=== PATIENT | male | born 1945 | race Caucasian/White ===

== ENCOUNTER 2017-02-20 16:33 | Emergency (ER) | payer MEDICARE, BC ==
[2017-02-20] MEDS ORDERED: Famotidine 20 MG Tab PO ONE (17:15)
[2017-02-20] MEDS ORDERED: Ondansetron 4 MG Tab.DIS PO ONE (17:15)
--- NOTE | 2017-02-20 17:22 | EDM.PDOC ---
ED HPI GENERAL MEDICAL PROBLEM - General Chief Complaint: Abdominal Pain Stated Complaint: DIZZY/NAUSEA/ABD PAIN Time Seen by Provider: 02/20/17 16:57 Source of Information: Reports: Patient History Limitations: Reports: No Limitations - History of Present Illness INITIAL COMMENTS - FREE TEXT/NARRATIVE: The patient presents with epigastric pain, nausea and vomiting. He says that it all started earlier today after he ate a half of a chicken sandwich. He denies fever, chills, cough, congestion, runny nose, chest pain, shortness of breath and diarrhea. He went to visit the grave of his and parents today and it was very hard for him. He is unsure if that may have triggered an anxiety attack. He still has his gallbladder and appendix. Onset: Gradual Duration: Hour(s): Location: Reports: Abdomen Quality: Reports: Ache Severity: Mild Improves with: Reports: None Worsens with: Reports: None Context: Reports: Other (after visiting his 's grave) Associated Symptoms: Reports: Nausea/Vomiting. Denies: Chest Pain, Cough, Fever /Chills, Shortness of Breath Middle Abdomen Pain Score (Numeric/FACES): 4 - Related Data Allergies Allergy/AdvReac Type Severity Reaction Status Date / Time Antihistamines - Alkylamine Allergy Tachycardia Verified 02/20/17 17:05 celecoxib [From Celebrex] Allergy Nausea Verified 02/20/17 17:05 ciprofloxacin [From Cipro] Allergy Nausea Verified 02/20/17 17:05 ciprofloxacin HCl Allergy Nausea Verified 02/20/17 17:05 [From Cipro] finasteride [From Proscar] Allergy Anxiety Verified 02/20/17 17:05 ibuprofen Allergy Nausea Verified 02/20/17 17:05 levofloxacin [From Levaquin] Allergy Nausea Verified 02/20/17 17:05 metronidazole [From Flagyl] Allergy Hives Verified 02/20/17 17:05 Metronidazole HCl Allergy Hives Verified 02/20/17 17:05 [From Flagyl] naproxen sodium [From Aleve] Allergy Nausea Verified 02/20/17 17:05 Sulfa (Sulfonamide Allergy Hives Verified 02/20/17 17:05 Antibiotics) sulfamethoxazole Allergy Nausea Verified 02/20/17 17:05 [From Bactrim] trimethoprim [From Bactrim] Allergy Nausea Verified 02/20/17 17:05 decongestants Allergy Tachycardia Uncoded 02/20/17 17:05 non-steroidal Allergy Nausea Uncoded 02/20/17 17:05 anti-inflammatories Home Meds: Home Meds Aspirin [Adult Low Dose Aspirin EC] 81 mg PO DAILY 01/08/14 [History] Metoprolol Succinate [Toprol XL] 25 mg PO DAILY 01/08/14 [History] Albuterol [Ventolin HFA] 2 puff INH Q4H PRN #1 puff 08/15/14 [Rx] Social & Family History - Family History Family Medical History: Noncontributory - Tobacco Use Smoking Status *Q: Current Every Day Smoker Years of Tobacco use: 15 Packs/Tins Daily: 0.5 Second Hand Smoke Exposure: No - Caffeine Use Caffeine Use: Reports: Coffee - Alcohol Use Days Per Week of Alcohol Use: 0 Number of Drinks Per Day: 2 Total Drinks Per Week: 0 - Recreational Drug Use Recreational Drug Use: No ED ROS GENERAL - Review of Systems Review Of Systems: See Below Constitutional: Reports: No Symptoms HEENT: Reports: No Symptoms Respiratory: Reports: No Symptoms Cardiovascular: Reports: No Symptoms Endocrine: Reports: No Symptoms GI/Abdominal: Reports: Abdominal Pain, Nausea, Vomiting. Denies: Diarrhea : Reports: No Symptoms Musculoskeletal: Reports: No Symptoms Skin: Reports: No Symptoms Neurological: Reports: No Symptoms ED EXAM, GI/ABD - Physical Exam Exam: See Below Exam Limited By: No Limitations General Appearance: Alert, No Apparent Distress Ears: Normal External Exam Nose: Normal Inspection Head: Atraumatic, Normocephalic Neck: Normal Inspection Respiratory/Chest: No Respiratory Distress, Lungs Clear, Normal Breath Sounds Cardiovascular: Regular Rate, Rhythm, No Edema, No Murmur GI/Abdominal: Soft, No Organomegaly, No Mass, Tenderness (Very mild upon palpation) Course - Vital Signs Last Recorded V/S: Last Vital Signs Temp 97.0 F 02/20/17 17:07 Pulse 78 02/20/17 17:41 Resp 18 02/20/17 17:41 BP 151/94 H 02/20/17 17:41 Pulse Ox 97 02/20/17 17:41 - Orders/Labs/Meds Orders: Active Orders 24 hr Category Date Time Status Cardiac Monitoring [RC] . DIRECTED Care 02/20/17 17:13 Active EKG Documentation Completion [RC] STAT Care 02/20/17 17:14 Active Chest 1V Frontal [CR] Stat Exams 02/20/17 17:15 Taken Labs: Laboratory Tests 02/20/17 02/20/17 02/20/17 Range/Units 17:25 17:25 18:20 WBC 11.97 H (4.23-9.07) K/mm3 RBC 5.34 (4.63-6.08) M/mm3 Hgb 16.2 (13.7-17.5) gm/L Hct 47.9 (40.1-51.0) % MCV 89.7 (79.0-92.2) fl MCH 30.3 (25.7-32.2) pg MCHC 33.8 (32.2-35.5) g/dl RDW Std Deviation 46.1 H (35.1-43.9) fL Plt Count 275 (163-337) K/mm3 MPV 9.0 L (9.4-12.3) fl Neut % (Auto) 63.0 (34.0-67.9) % Lymph % (Auto) 23.7 (21.8-53.1) % [place]ton % (Auto) 9.1 (5.3-12.2) % Eos % (Auto) 3.1 (0.8-7.0) Baso % (Auto) 0.8 (0.1-1.2) % Neut # (Auto) 7.55 H (1.78-5.38) K/mm3 Lymph # (Auto) 2.84 (1.32-3.57) K/mm3 Overton # (Auto) 1.09 H (0.30-0.82) K/mm3 Eos # (Auto) 0.37 (0.04-0.54) K/mm3 Baso # (Auto) 0.09 H (0.01-0.08) K/mm3 Sodium 137 (136-145) mEq/L Potassium 3.9 (3.5-5.1) mEq/L Chloride 102 (98-107) mEq/L Carbon Dioxide 23 (21-32) mEq/L Anion Gap 15.9 H (5-15) BUN 13 (7-18) mg/dL Creatinine 0.8 (0.7-1.3) mg/dL Est Cr Clr Drug Dosing 87.45 mL/min Estimated GFR (MDRD) > 60 (>60) mL/min BUN/Creatinine Ratio 16.3 (14-18) Glucose 101 (83-115) mg/dL Calcium 8.5 (8.5-10.1) mg/dL Total Bilirubin 0.7 (0.2-1.0) mg/dL AST 43 H (15-37) U/L ALT 30 (16-63) U/L Alkaline Phosphatase 86 (46-116) U/L Troponin I < 0.017 (0.00-0.056) ng/mL Total Protein 7.2 (6.4-8.2) g/dl Albumin 3.9 (3.4-5.0) g/dl Globulin 3.3 gm/dL Albumin/Globulin Ratio 1.2 (1-2) Lipase 150 (73-393) U/L Urine Color Yellow (Yellow) Urine Appearance Clear (Clear) Urine pH 6.0 (5.0-8.0) Ur Specific [place] 1.020 (1.005-1.030) Urine Protein 1+ H (Negative) Urine Glucose (UA) Negative (Negative) Urine Ketones Negative (Negative) Urine Occult Blood 1+ H (Negative) Urine Nitrite Negative (Negative) Urine Bilirubin Negative (Negative) Urine Urobilinogen 0.2 (0.2-1.0) Ur Leukocyte Esterase Negative (Negative) Urine RBC 0-5 (0-5) /hpf Urine WBC 0-5 (0-5) /hpf Ur Epithelial Cells Not seen (0-5) /hpf Urine Bacteria Few (FEW) /hpf Urine Mucus Not seen (FEW) /hpf Meds: Medications Discontinued Medications Generic Name Dose Route Start Last Admin Trade Name Freq PRN Reason Stop Dose Admin Famotidine 20 mg 02/20/17 17:15 02/20/17 17:39 Pepcid PO 02/20/17 17:16 20 mg ONETIME ONE Administration Ondansetron HCl 4 mg 02/20/17 17:15 02/20/17 17:39 Zofran Odt PO 02/20/17 17:16 4 mg ONETIME ONE Administration - Re-Assessments/Exams Free Text/Narrative Re-Assessment/Exam: 02/20/17 17:22 I ordered labs, EKG, CXR, UA, pepcid and zofran. 02/20/17 18:20 His WBC is elevated at 11.97. His anion gap was elevated slightly at 15.9. His AST was elevated at 43. His troponin was negative. His lipase was negative. I am waiting for a urine sample. 02/20/17 18:45 His UA shows no UTI. I will discharge him home. Departure - Departure Time of Disposition: 18:45 Disposition: Home, Self-Care 01 Condition: good Clinical Impression: Nausea Abdominal pain Qualifiers: Abdominal location: epigastric Qualified Code(s): R10.13 - Epigastric pain - Discharge Information Referrals: Romel Kunz MD [Primary Care Provider] - 1 Week Forms: ED Department Discharge Additional Instructions: Take pepcid 20mg daily for 5 days. Follow up with Dr Kunz in 1 week. Please return if you are worse. - My Orders Last 24 Hours: My Active Orders 02/20/17 17:13 Cardiac Monitoring [RC] . DIRECTED 02/20/17 17:14 EKG Documentation Completion [RC] STAT 02/20/17 17:15 Chest 1V Frontal [CR] Stat - Assessment/Plan Last 24 Hours: My Active Orders 02/20/17 17:13 Cardiac Monitoring [RC] . DIRECTED 02/20/17 17:14 EKG Documentation Completion [RC] STAT 02/20/17 17:15 Chest 1V Frontal [CR] Stat
[2017-02-20 18:57] VITALS: BP 147/79
--- NOTE | 2017-02-21 07:06 | CR ---
Chest: Frontal view of the chest was obtained utilizing portable technique. Comparison: Previous chest x-ray of 08/15/14. Heart size appears within normal limits for portable technique and slightly less prominent than on prior exam. Lungs are clear. Bony structures are grossly intact. Impression: 1. Nothing acute is appreciated on portable chest x-ray. Diagnostic code #1
== END 2017-02-20 18:55 | disposition home or self-care (01) ==
LOC: JD.ED 16:33
DX: R11.0 Nausea (principal); R10.13 Epigastric pain; F17.210 Nicotine dependence, cigarettes, uncomplicated; Z79.82 Long term (current) use of aspirin; Z79.899 Other long term (current) drug therapy; Z88.1 Allergy status to other antibiotic agents; Z88.6 Allergy status to analgesic agent; Z88.2 Allergy status to sulfonamides; Z88.8 Allergy status to other drugs, medicaments and biological substances
CPT/HCPCS: 36415; 71010; 80053; 81001; 83690; 84484; 85025; 93005; 99284; A9270

== ENCOUNTER 2017-05-30 10:19 | Emergency (ER) | payer MEDICARE, BC ==
[2017-05-30 10:43] VITALS: BP 164/84
--- NOTE | 2017-05-30 11:04 | EDM.PDOC ---
ED HPI GENERAL MEDICAL PROBLEM - General Chief Complaint: Upper Extremity Injury/Pain Stated Complaint: RT ARM AND HAND WEAKNESS AND NUMBNESS Time Seen by Provider: 05/30/17 10:47 Source of Information: Reports: Patient History Limitations: Reports: No Limitations - History of Present Illness INITIAL COMMENTS - FREE TEXT/NARRATIVE: Patient is a 71 year old male who presents to the E.D complaining of right hand weakness, numbness to the 4th and 5th finger, and medial elbow pain with overuse. States symptoms started approximately 2 wks out of the blue with no known precipitating factors. With use of the right hand states it gets tired and with drastically weaker then the left. Discomfort is from the elbow down. Most of the pain is isolated to the medial aspect of the elbow where ulnar nerve runs. Again no hx of trauma to the elbow. States he was evaluated at the walk in clinic recently with head ct obtained. This was essentially with out acute findings. He was instructed to followup with PCP to which he states is weeks out. He is requesting further evaluation. He denies any stroke like symptoms, chest pain, sob, fever/chills, or any additional complaints. He has no cervical neck pain or hx of injury to right shoulder. No history of carpal tunnel syndrome or surgery. Treatments [employer]: Reports: Acetaminophen right forearm Pain Score (Numeric/FACES): 7 - Related Data Allergies Allergy/AdvReac Type Severity Reaction Status Date / Time Antihistamines - Alkylamine Allergy Tachycardia Verified 05/30/17 10:32 celecoxib [From Celebrex] Allergy Nausea Verified 05/30/17 10:32 ciprofloxacin [From Cipro] Allergy Nausea Verified 05/30/17 10:32 ciprofloxacin HCl Allergy Nausea Verified 05/30/17 10:32 [From Cipro] finasteride [From Proscar] Allergy Anxiety Verified 05/30/17 10:32 ibuprofen Allergy Nausea Verified 05/30/17 10:32 levofloxacin [From Levaquin] Allergy Nausea Verified 05/30/17 10:32 metronidazole [From Flagyl] Allergy Hives Verified 05/30/17 10:32 Metronidazole HCl Allergy Hives Verified 05/30/17 10:32 [From Flagyl] naproxen sodium [From Aleve] Allergy Nausea Verified 05/30/17 10:32 Sulfa (Sulfonamide Allergy Hives Verified 05/30/17 10:32 Antibiotics) sulfamethoxazole Allergy Nausea Verified 05/30/17 10:32 [From Bactrim] trimethoprim [From Bactrim] Allergy Nausea Verified 05/30/17 10:32 decongestants Allergy Tachycardia Uncoded 05/30/17 10:32 non-steroidal Allergy Nausea Uncoded 05/30/17 10:32 anti-inflammatories Home Meds: Home Meds Aspirin [Adult Low Dose Aspirin EC] 81 mg PO DAILY 01/08/14 [History] Metoprolol Succinate [Toprol XL] 25 mg PO DAILY 01/08/14 [History] Albuterol [Ventolin HFA] 2 puff INH Q4H PRN #1 puff 08/15/14 [Rx] Clobetasol [Clobetasol Propionate 0.05%] 30 gm TOP BID PRN 05/30/17 [History] Past Medical History HEENT History: Reports: Impaired Vision Cardiovascular History: Reports: Hypertension Genitourinary History: Reports: Prostate Disorder Musculoskeletal History: Reports: Arthritis Dermatologic History: Reports: Seborrheic Dermatitis - Past Surgical History HEENT Surgical History: Reports: Other (See Below) Other HEENT Surgeries/Procedures: 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 Male Surgical History: Reports: TURP-Transurethral Resection of Prostate Social & Family History - Family History Family Medical History: Noncontributory - Tobacco Use Smoking Status *Q: Current Every Day Smoker Years of Tobacco use: 50 Packs/Tins Daily: 0.5 Second Hand Smoke Exposure: No - Caffeine Use Caffeine Use: Reports: Coffee - Alcohol Use Days Per Week of Alcohol Use: 0 Number of Drinks Per Day: 2 Total Drinks Per Week: 0 - Recreational Drug Use Recreational Drug Use: No Review of Systems - Review of Systems Review Of Systems: See Below Constitutional: Reports: No Symptoms Eyes: Denies: Vision Change Ears: Denies: Dizziness Mouth/Throat: Reports: No Symptoms Respiratory: Denies: Shortness of Breath, Cough, Sputum Cardiovascular: Denies: Chest Pain, Irregular Heart Rate, Lightheadedness, Palpitations, Syncope GI/Abdominal: Denies: Abdominal Pain, Diarrhea, Nausea, Vomiting Musculoskeletal: Reports: Arm Pain (right forearm/medial elbow with overuse), Back Pain (chronic), Hand Pain (right hand with overuse). Denies: Neck Pain, Leg Pain Skin: Reports: No Symptoms Neurological: Reports: Numbness (right: 4th/5th finger), Tingling, Weakness ( right hand). Denies: Dizziness, Headache, Trouble Speaking, Difficulty Walking ED EXAM, GENERAL - Physical Exam Exam: See Below Exam Limited By: No Limitations General Appearance: Alert, WD/WN, No Apparent Distress Eye Exam: Bilateral Eye: EOMI, PERRL Ears: Hearing Grossly Normal Nose: Normal Inspection, No Blood Throat/Mouth: Normal Inspection, Normal Oropharynx, Normal Voice, No Airway Compromise Head: Atraumatic, Normocephalic Neck: Normal Inspection, Supple, Non-Tender, Full Range of Motion. No: Carotid Bruit Respiratory/Chest: No Respiratory Distress, Lungs Clear, Normal Breath Sounds, No Accessory Muscle Use, Chest Non-Tender Cardiovascular: Normal Peripheral Pulses, Regular Rate, Rhythm Peripheral Pulses: 2+: Radial (L), Radial (R) Back Exam: Normal Inspection Extremities: Normal Inspection, Normal Range of Motion, Non-Tender, No Pedal Edema, Normal Capillary Refill Neurological: Alert, Oriented, CN II-XII Intact, Normal Cognition, No Motor/ Sensory Deficits, Other (Weakness to the right hand account executive key accounts in comparison to the left. Decreased sensation to the 4th and 5th fingers right hand. No facial droop , slurred speech, difficulty swallowing, or gait disturbances. ) Psychiatric: Normal Affect, Normal Mood Skin Exam: Warm, Dry, Intact, Normal Color Course - Vital Signs Last Recorded V/S: Last Vital Signs Temp 98.1 F 05/30/17 10:28 Pulse 65 05/30/17 10:28 Resp 18 05/30/17 10:28 BP 164/84 H 05/30/17 10:28 Pulse Ox 96 05/30/17 10:28 - Re-Assessments/Exams Free Text/Narrative Re-Assessment/Exam: On examination patient has obvious decreased strength in his right hand. Sensation changes noted along the fourth and fifth finger. Median and also radial nerve are intact with no strength discrepancies in comparison the left. With ulnar nerve testing patient does have weakness to the right hand with testing. Patient is not having a stroke but is more likely related to ulnar nerve palsy. This requires PT, orthopedic surgeon consultation, and or emg. Patient does not want to go to PT due to past experiences and is requesting I contact his PCP to arrange a appt to further discuss these findings. 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 Dr. Roberson will see you immediately today following discharge. Go his clinic to be evaluated. Return to the E.D. as needed for any new or worsening symptoms.
== END 2017-05-30 11:25 | disposition home or self-care (01) ==
LOC: JD.ED 10:19
DX: G56.21 Lesion of ulnar nerve, right upper limb (principal); I10 Essential (primary) hypertension; F17.210 Nicotine dependence, cigarettes, uncomplicated; Z98.890 Other specified postprocedural states; Z85.820 Personal history of malignant melanoma of skin; Z79.82 Long term (current) use of aspirin; Z79.899 Other long term (current) drug therapy; Z88.1 Allergy status to other antibiotic agents; Z88.6 Allergy status to analgesic agent; Z88.8 Allergy status to other drugs, medicaments and biological substances
CPT/HCPCS: 99283

== ENCOUNTER 2017-10-29 09:02 | Emergency (ER) | payer MEDICARE, BC ==
[2017-10-29 09:58] VITALS: BP 162/91
--- NOTE | 2017-10-29 11:49 | EDM.PDOC ---
ED HPI GENERAL MEDICAL PROBLEM - General Chief Complaint: General Stated Complaint: BODY ACHES Time Seen by Provider: 10/29/17 09:32 Source of Information: Reports: Patient, RN Notes Reviewed - History of Present Illness INITIAL COMMENTS - FREE TEXT/NARRATIVE: 72 year old male comes in with severe achiness. Had some achiness last evening, slight nasal and sinus congestion, occasional cough. Achiness much worse this morning. His cough is only very occasional. No chest pain or difficulty breathing. Mild nasal congestion continues. Very mild headache only. He has had a few chills but no definite fever. Generalized Pain Score (Numeric/FACES): 5 - Related Data Allergies Allergy/AdvReac Type Severity Reaction Status Date / Time Antihistamines - Alkylamine Allergy Tachycardia Verified 10/29/17 09:33 celecoxib [From Celebrex] Allergy Nausea Verified 10/29/17 09:33 ciprofloxacin [From Cipro] Allergy Nausea Verified 10/29/17 09:33 ciprofloxacin HCl Allergy Nausea Verified 10/29/17 09:33 [From Cipro] finasteride [From Proscar] Allergy Anxiety Verified 10/29/17 09:33 ibuprofen Allergy Nausea Verified 10/29/17 09:33 levofloxacin [From Levaquin] Allergy Nausea Verified 10/29/17 09:33 metronidazole [From Flagyl] Allergy Hives Verified 10/29/17 09:33 Metronidazole HCl Allergy Hives Verified 10/29/17 09:33 [From Flagyl] naproxen sodium [From Aleve] Allergy Nausea Verified 10/29/17 09:33 Sulfa (Sulfonamide Allergy Hives Verified 10/29/17 09:33 Antibiotics) sulfamethoxazole Allergy Nausea Verified 10/29/17 09:33 [From Bactrim] trimethoprim [From Bactrim] Allergy Nausea Verified 10/29/17 09:33 decongestants Allergy Tachycardia Uncoded 05/30/17 10:32 non-steroidal Allergy Nausea Uncoded 05/30/17 10:32 anti-inflammatories Home Meds: Home Meds Aspirin [Adult Low Dose Aspirin EC] 81 mg PO DAILY 01/08/14 [History] Metoprolol Succinate [Toprol XL] 25 mg PO DAILY 01/08/14 [History] Albuterol [Ventolin HFA] 2 puff INH Q4H PRN #1 puff 08/15/14 [Rx] Past Medical History HEENT History: Reports: Impaired Vision Cardiovascular History: Reports: Hypertension Genitourinary History: Reports: Prostate Disorder Musculoskeletal History: Reports: Arthritis Dermatologic History: Reports: Seborrheic Dermatitis - Past Surgical History HEENT Surgical History: Reports: Other (See Below) Other HEENT Surgeries/Procedures: 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 Denies: Fever HEENT: Reports: Rhinitis, Throat Pain (Mild) Respiratory: Reports: Cough. Denies: Shortness of Breath, Wheezing, Sputum Cardiovascular: Denies: Chest Pain Endocrine: Reports: Fatigue GI/Abdominal: Reports: Decreased Appetite. Denies: Abdominal Pain, Nausea, Vomiting Musculoskeletal: Reports: Other (Generalized achiness) Skin: Reports: No Symptoms Neurological: Reports: Headache (Mild) ED EXAM, GENERAL - Physical Exam Exam: See Below General Appearance: Alert, Mild Distress Eye Exam: Bilateral Eye: PERRL Throat/Mouth: Normal Inspection, Normal Oropharynx Head: No: Facial Swelling Neck: Supple Respiratory/Chest: No Respiratory Distress, Lungs Clear, Normal Breath Sounds Cardiovascular: Regular Rate, Rhythm GI/Abdominal: Non-Tender Back Exam: Normal Inspection. No: CVA Tenderness (L), CVA Tenderness (R) Extremities: Normal Inspection. No: Pedal Edema, Leg Pain Skin Exam: Warm, Dry, Normal Color Course - Vital Signs Last Recorded V/S: Last Vital Signs Temp 97.0 F 10/29/17 09:56 Pulse 75 10/29/17 09:56 Resp 20 10/29/17 09:56 BP 162/91 H 10/29/17 09:56 Pulse Ox 97 10/29/17 09:56 Departure - Departure Time of Disposition: 11:48 Disposition: Home, Self-Care 01 Condition: Fair Clinical Impression: Viral syndrome - Discharge Information Referrals: Romel Kunz MD [Primary Care Provider] - Forms: ED Department Discharge Additional Instructions: Rest, drink plenty of water to maintain hydration, vaporizer or steam as needed , Tylenol 2-3 times daily as needed, vitamin C her multivitamin recommended. Follow-up clinic if not much better within 3-5 days, return to ED as needed.
== END 2017-10-29 11:58 | disposition home or self-care (01) ==
LOC: JD.ED 09:02
DX: B34.9 Viral infection, unspecified (principal); I10 Essential (primary) hypertension; F17.210 Nicotine dependence, cigarettes, uncomplicated; Z88.8 Allergy status to other drugs, medicaments and biological substances; Z88.2 Allergy status to sulfonamides; Z88.1 Allergy status to other antibiotic agents; Z79.82 Long term (current) use of aspirin; Z79.899 Other long term (current) drug therapy
CPT/HCPCS: 87804; 99283

== ENCOUNTER 2018-03-31 19:05 | Emergency (ER) | payer MEDICARE, BC ==
[2018-03-31 19:26] VITALS: BP 153/89
--- NOTE | 2018-03-31 19:42 | EDM.PDOC ---
ED HPI GENERAL MEDICAL PROBLEM - General Chief Complaint: Bite:Animal, Insect Stated Complaint: TICKS Time Seen by Provider: 03/31/18 19:24 Source of Information: Reports: Patient History Limitations: Reports: No Limitations - History of Present Illness INITIAL COMMENTS - FREE TEXT/NARRATIVE: The patient has a couple areas on his left leg that he is concerned may be tick bites. He lives alone and he cannot get a good look at them. He noticed a tick a few days ago that was crawling on his lower abdomen and groin area. It did not bite him yet. Onset: Gradual Duration: Day(s): Location: Reports: Lower Extremity, Left, Lower Extremity, Right Improves with: Reports: None Worsens with: Reports: None Associated Symptoms: Reports: No Other Symptoms Treatments GRAIN BUYER: Reports: Other (see below) Other Treatments GRAIN BUYER: none - Related Data Allergies Allergy/AdvReac Type Severity Reaction Status Date / Time Antihistamines - Alkylamine Allergy Tachycardia Verified 10/29/17 09:33 celecoxib [From Celebrex] Allergy Nausea Verified 10/29/17 09:33 ciprofloxacin [From Cipro] Allergy Nausea Verified 10/29/17 09:33 ciprofloxacin HCl Allergy Nausea Verified 10/29/17 09:33 [From Cipro] finasteride [From Proscar] Allergy Anxiety Verified 10/29/17 09:33 ibuprofen Allergy Nausea Verified 10/29/17 09:33 levofloxacin [From Levaquin] Allergy Nausea Verified 10/29/17 09:33 metronidazole [From Flagyl] Allergy Hives Verified 10/29/17 09:33 Metronidazole HCl Allergy Hives Verified 10/29/17 09:33 [From Flagyl] naproxen sodium [From Aleve] Allergy Nausea Verified 10/29/17 09:33 Sulfa (Sulfonamide Allergy Hives Verified 10/29/17 09:33 Antibiotics) sulfamethoxazole Allergy Nausea Verified 10/29/17 09:33 [From Bactrim] trimethoprim [From Bactrim] Allergy Nausea Verified 10/29/17 09:33 decongestants Allergy Tachycardia Uncoded 05/30/17 10:32 non-steroidal Allergy Nausea Uncoded 05/30/17 10:32 anti-inflammatories Home Meds: Home Meds Aspirin [Adult Low Dose Aspirin EC] 81 mg PO DAILY 01/08/14 [History] Metoprolol Succinate [Toprol XL] 25 mg PO DAILY 01/08/14 [History] Albuterol [Ventolin HFA] 2 puff INH Q4H PRN #1 puff 08/15/14 [Rx] Past Medical History HEENT History: Reports: Impaired Vision Cardiovascular History: Reports: Hypertension Genitourinary History: Reports: Prostate Disorder Musculoskeletal History: Reports: Arthritis Dermatologic History: Reports: Seborrheic Dermatitis - Past Surgical History HEENT Surgical History: Reports: Other (See Below) Other HEENT Surgeries/Procedures: 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 Male Surgical History: Reports: TURP-Transurethral Resection of Prostate Social & Family History - Family History Family Medical History: Noncontributory - Tobacco Use Smoking Status *Q: Current Every Day Smoker Years of Tobacco use: 40 Packs/Tins Daily: 0.5 - Caffeine Use Caffeine Use: Reports: Coffee - Recreational Drug Use Recreational Drug Use: No ED ROS GENERAL - Review of Systems Review Of Systems: See Below Constitutional: Reports: No Symptoms HEENT: Reports: No Symptoms Respiratory: Reports: No Symptoms Cardiovascular: Reports: No Symptoms Endocrine: Reports: No Symptoms GI/Abdominal: Reports: No Symptoms : Reports: No Symptoms Musculoskeletal: Reports: Other (2 areas on the left leg with erythema) ED EXAM, ANIMAL BITE - Physical Exam Exam: See Below Exam Limited By: No Limitations General Appearance: Alert, No Apparent Distress Ears: Normal External Exam Nose: Normal Inspection Throat/Mouth: Normal Inspection Head: Atraumatic, Normocephalic Neck: Normal Inspection Respiratory/Chest: No Respiratory Distress Extremities: Other (an area on the lef anterior leg with a scab and mild erythema surrounding it. There is an area of open skin that is very small to the left upper posterior leg with some erythema. No ticks are noted. ) Course - Vital Signs Last Recorded V/S: Last Vital Signs Temp 98.1 F 03/31/18 19:24 Pulse 86 03/31/18 19:24 Resp 20 03/31/18 19:24 BP 153/89 H 03/31/18 19:24 Pulse Ox 95 03/31/18 19:24 - Re-Assessments/Exams Free Text/Narrative Re-Assessment/Exam: 03/31/18 19:41 I will have him put some antibiotic ointment on the spots 3 times per day. Departure - Departure Time of Disposition: 19:45 Disposition: Home, Self-Care 01 Condition: Good Clinical Impression: Bug bite with infection Qualifiers: Encounter type: initial encounter Qualified Code(s): W57.XXXA - Bitten or stung by nonvenomous insect and other nonvenomous arthropods, initial encounter - Discharge Information Referrals: Romel Kunz MD [Primary Care Provider] - Additional Instructions: Wash the affected areas with warm soapy water 2 times per day. Apply antibiotic ointment 3 times per day for about a week. Please return if you are worse.
== END 2018-03-31 19:48 | disposition home or self-care (01) ==
LOC: JD.ED 19:05
DX: S80.862A Insect bite (nonvenomous), left lower leg, initial encounter (principal); L08.9 Local infection of the skin and subcutaneous tissue, unspecified; I10 Essential (primary) hypertension; F17.210 Nicotine dependence, cigarettes, uncomplicated; Z88.8 Allergy status to other drugs, medicaments and biological substances; Z88.2 Allergy status to sulfonamides; Z79.82 Long term (current) use of aspirin; Z79.899 Other long term (current) drug therapy; W57.XXXA Bitten or stung by nonvenomous insect and other nonvenomous arthropods, initial encounter
CPT/HCPCS: 99282; 99283

== ENCOUNTER 2018-04-12 02:11 | Emergency (ER) | payer MEDICARE, BC ==
[2018-04-12 02:32] VITALS: BP 171/92
--- NOTE | 2018-04-12 03:26 | EDM.PDOC ---
ED HPI GENERAL MEDICAL PROBLEM - General Chief Complaint: Chest Pain Stated Complaint: RIB PAIN Time Seen by Provider: 04/12/18 02:25 Source of Information: Reports: Other (Patient left prior to being seen by me) History Limitations: Reports: Other (Patient left prior to being seen by me) - History of Present Illness Onset: Other (Patient left prior to being examined or history taken by me) Right Chest Pain Score (Numeric/FACES): 5 - Related Data Allergies Allergy/AdvReac Type Severity Reaction Status Date / Time Antihistamines - Alkylamine Allergy Tachycardia Verified 04/12/18 02:28 celecoxib [From Celebrex] Allergy Nausea Verified 04/12/18 02:28 ciprofloxacin [From Cipro] Allergy Nausea Verified 04/12/18 02:28 ciprofloxacin HCl Allergy Nausea Verified 04/12/18 02:28 [From Cipro] finasteride [From Proscar] Allergy Anxiety Verified 04/12/18 02:28 ibuprofen Allergy Nausea Verified 04/12/18 02:28 levofloxacin [From Levaquin] Allergy Nausea Verified 04/12/18 02:28 metronidazole [From Flagyl] Allergy Hives Verified 04/12/18 02:28 Metronidazole HCl Allergy Hives Verified 04/12/18 02:28 [From Flagyl] naproxen sodium [From Aleve] Allergy Nausea Verified 04/12/18 02:28 Sulfa (Sulfonamide Allergy Hives Verified 04/12/18 02:28 Antibiotics) sulfamethoxazole Allergy Nausea Verified 04/12/18 02:28 [From Bactrim] trimethoprim [From Bactrim] Allergy Nausea Verified 04/12/18 02:28 decongestants Allergy Tachycardia Uncoded 04/12/18 02:28 non-steroidal Allergy Nausea Uncoded 04/12/18 02:28 anti-inflammatories Home Meds: Home Meds Aspirin [Adult Low Dose Aspirin EC] 81 mg PO DAILY 01/08/14 [History] Metoprolol Succinate [Toprol XL] 25 mg PO DAILY 01/08/14 [History] Albuterol [Ventolin HFA] 2 puff INH Q4H PRN #1 puff 08/15/14 [Rx] Past Medical History HEENT History: Reports: Impaired Vision Cardiovascular History: Reports: Hypertension Genitourinary History: Reports: Prostate Disorder Musculoskeletal History: Reports: Arthritis Dermatologic History: Reports: Seborrheic Dermatitis - Past Surgical History HEENT Surgical History: Reports: Other (See Below) Other HEENT Surgeries/Procedures: 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 Male Surgical History: Reports: TURP-Transurethral Resection of Prostate Social & Family History - Family History Family Medical History: Noncontributory - Caffeine Use Caffeine Use: Reports: Coffee ED ROS GENERAL - Review of Systems Review Of Systems: Unable To Obtain ED EXAM, GENERAL - Physical Exam Exam: Not Obtained Course - Vital Signs Last Recorded V/S: Last Vital Signs Temp 97.6 F 04/12/18 02:28 Pulse 64 04/12/18 02:28 Resp 18 04/12/18 02:28 BP 171/92 H 04/12/18 02:28 Pulse Ox 95 04/12/18 02:28 - Orders/Labs/Meds Orders: Active Orders 24 hr Category Date Time Status EKG Documentation Completion [RC] ASDIRECTED Care 04/12/18 02:26 Active EKG 12 Lead [EK] Stat Ther 04/12/18 02:26 Ordered Departure - Departure Time of Disposition: 03:26 Disposition: Eloped 07 Condition: Undetermined Clinical Impression: Painful rib - Discharge Information *PRESCRIPTION DRUG MONITORING PROGRAM REVIEWED*: Not Applicable *COPY OF PRESCRIPTION DRUG MONITORING REPORT IN PATIENT CODY: Not Applicable Referrals: Romel Kunz MD [Primary Care Provider] - Additional Instructions: Patient left prior to being examined by me the physician. As I was entering the room the patient was telling the nurse that he did not need or want an EKG and that he was just going to go home. That is all I was able to hear the conversation. When I turned around the patient had left. - My Orders Last 24 Hours: My Active Orders 04/12/18 02:26 EKG Documentation Completion [RC] ASDIRECTED EKG 12 Lead [EK] Stat - Assessment/Plan Last 24 Hours: My Active Orders 04/12/18 02:26 EKG Documentation Completion [RC] ASDIRECTED EKG 12 Lead [EK] Stat
== END 2018-04-12 02:45 | disposition left against medical advice (07) ==
LOC: JD.ED 02:11
DX: Z53.21 Procedure and treatment not carried out due to patient leaving prior to being seen by health care provider (principal)

== ENCOUNTER 2019-06-01 21:25 | Emergency (ER) | payer MEDICARE, BC ==
[2019-06-01 21:55] VITALS: BP 208/112; PULSE 72
== END 2019-06-01 22:36 ==
LOC: JD.ED 21:25
DX: Z53.21 Procedure and treatment not carried out due to patient leaving prior to being seen by health care provider (principal)
CPT/HCPCS: 81001

== ENCOUNTER 2019-09-14 00:10 | Emergency (ER) | payer MEDICARE, BC ==
[2019-09-14 00:23] VITALS: BP 137/80; PULSE 60
--- NOTE | 2019-09-14 01:05 | EDM.PDOC ---
ED HPI GENERAL MEDICAL PROBLEM - General Chief Complaint: General Stated Complaint: hives on legs itchy Time Seen by Provider: 09/14/19 00:35 Source of Information: Reports: Patient, Family History Limitations: Reports: No Limitations - History of Present Illness INITIAL COMMENTS - FREE TEXT/NARRATIVE: This is a 74-year-old male. He comes tonight because he has a rash on his legs that are itchy. This started about 2 days ago. They have been racking their brain to find out what it might be that he is allergic to because he has lots of allergies but nothing is changed as far his his food his soap shampoos etc. Because of the itchiness and the rash he comes to the ER this morning. He denies any shortness of breath. He denies any chest pain or abdominal pain. He denies any nausea vomiting diarrhea or constipation. He says he just does not feel well but he cannot really tell me what it is that he does not feel well about. Denies any fever or chills. - Related Data Allergies Allergy/AdvReac Type Severity Reaction Status Date / Time metronidazole [From Flagyl] Allergy Hives Verified 09/14/19 00:23 Metronidazole HCl Allergy Hives Verified 09/14/19 00:23 [From Flagyl] Sulfa (Sulfonamide Allergy Hives Verified 09/14/19 00:23 Antibiotics) sulfamethoxazole Allergy Nausea Verified 09/14/19 00:23 [From Bactrim] trimethoprim [From Bactrim] Allergy Nausea Verified 09/14/19 00:23 Antihistamines - Alkylamine AdvReac Tachycardia Verified 09/14/19 00:23 celecoxib [From Celebrex] AdvReac Nausea Verified 09/14/19 00:23 ciprofloxacin [From Cipro] AdvReac Nausea Verified 09/14/19 00:23 ciprofloxacin HCl AdvReac Nausea Verified 09/14/19 00:23 [From Cipro] finasteride [From Proscar] AdvReac Anxiety Verified 09/14/19 00:23 ibuprofen AdvReac Nausea Verified 09/14/19 00:23 levofloxacin [From Levaquin] AdvReac Nausea Verified 09/14/19 00:23 naproxen sodium [From Aleve] AdvReac Nausea Verified 09/14/19 00:23 decongestants AdvReac Tachycardia Uncoded 10/19/18 10:17 non-steroidal AdvReac Nausea Uncoded 10/19/18 10:17 anti-inflammatories Home Meds: Home Meds Aspirin [Adult Low Dose Aspirin EC] 81 mg PO DAILY 01/08/14 [History] Metoprolol Succinate [Toprol XL] 25 mg PO DAILY 01/08/14 [History] Albuterol [Ventolin HFA] 2 puff INH Q4H PRN #1 puff 08/15/14 [Rx] Past Medical History HEENT History: Reports: Impaired Vision Cardiovascular History: Reports: Hypertension Genitourinary History: Reports: Prostate Disorder Musculoskeletal History: Reports: Arthritis Dermatologic History: Reports: Seborrheic Dermatitis - Past Surgical History HEENT Surgical History: Reports: Other (See Below) Other HEENT Surgeries/Procedures: melanoma to posterior eye removal 2012 Male Surgical History: Reports: TURP-Transurethral Resection of Prostate Social & Family History - Family History Family Medical History: Noncontributory - Tobacco Use Smoking Status *Q: Unknown Ever Smoked - Caffeine Use Caffeine Use: Reports: Coffee ED ROS GENERAL - Review of Systems Review Of Systems: See Below Constitutional: Reports: Malaise. Denies: Fever, Chills HEENT: Reports: No Symptoms Respiratory: Denies: Shortness of Breath, Cough Cardiovascular: Denies: Chest Pain Endocrine: Reports: No Symptoms GI/Abdominal: Denies: Abdominal Pain, Constipation, Diarrhea, Nausea, Vomiting : Denies: No Symptoms Musculoskeletal: Denies: No Symptoms Skin: Reports: Pruritis, Rash Neurological: Reports: No Symptoms Psychiatric: Reports: No Symptoms Hematologic/Lymphatic: Reports: No Symptoms ED EXAM, GENERAL - Physical Exam Exam: See Below Exam Limited By: No Limitations General Appearance: Alert, WD/WN, No Apparent Distress Eye Exam: Bilateral Eye: Normal Inspection Ears: Normal External Exam Nose: Normal Inspection Throat/Mouth: Normal Inspection, Normal Lips, Normal Voice, No Airway Compromise Head: Normocephalic Neck: Supple Respiratory/Chest: No Respiratory Distress, Lungs Clear, Normal Breath Sounds Cardiovascular: Regular Rate, Rhythm, No Murmur GI/Abdominal: Soft, Non-Tender Back Exam: Normal Inspection, Decreased Range of Motion, Other (No rashes noted) Extremities: Normal Range of Motion, Other (He has a macular papular type rash of his lower legs distally on both legs some of it is blanchable some of it looks more like a vasculitis, he also has a blanchable rash on his left belt line hip area, these areas are very itchy but there is no scaly skin noted). No : Pedal Edema Neurological: Alert, Oriented Psychiatric: Normal Affect, Normal Mood Skin Exam: Warm, Dry Course - Vital Signs Last Recorded V/S: Last Vital Signs Temp 96.2 F 09/14/19 00:20 Pulse 60 09/14/19 00:20 Resp 16 09/14/19 00:20 BP 137/80 09/14/19 00:20 Pulse Ox 96 09/14/19 00:20 - Orders/Labs/Meds Labs: Laboratory Tests 09/14/19 09/14/19 Range/Units 01:25 01:25 WBC 9.21 H (4.23-9.07) K/mm3 RBC 5.39 (4.63-6.08) M/mm3 Hgb 16.4 (13.7-17.5) gm/dl Hct 48.8 (40.1-51.0) % MCV 90.5 (79.0-92.2) fl MCH 30.4 (25.7-32.2) pg MCHC 33.6 (32.2-35.5) g/dl RDW Std Deviation 45.2 H (35.1-43.9) fL Plt Count 271 (163-337) K/mm3 MPV 9.0 L (9.4-12.3) fl Neut % (Auto) 45.3 (34.0-67.9) % Lymph % (Auto) 31.2 (21.8-53.1) % [place] % (Auto) 10.1 (5.3-12.2) % Eos % (Auto) 11.3 H (0.8-7.0) Baso % (Auto) 1.8 H (0.1-1.2) % Neut # (Auto) 4.17 (1.78-5.38) K/mm3 Lymph # (Auto) 2.87 (1.32-3.57) K/mm3 [place] # (Auto) 0.93 H (0.30-0.82) K/mm3 Eos # (Auto) 1.04 H (0.04-0.54) K/mm3 Baso # (Auto) 0.17 H (0.01-0.08) K/mm3 Sodium 137 (136-145) mEq/L Potassium 4.2 (3.5-5.1) mEq/L Chloride 104 (98-107) mEq/L Carbon Dioxide 24 (21-32) mEq/L Anion Gap 13.2 (5-15) BUN 14 (7-18) mg/dL Creatinine 0.8 (0.7-1.3) mg/dL Est Cr Clr Drug Dosing TNP Estimated GFR (MDRD) > 60 (>60) mL/min BUN/Creatinine Ratio 17.5 (14-18) Glucose 99 (83-115) mg/dL Calcium 8.8 (8.5-10.1) mg/dL Total Bilirubin 0.5 (0.2-1.0) mg/dL AST 37 (15-37) U/L ALT 26 (16-63) U/L Alkaline Phosphatase 80 (46-116) U/L C-Reactive Protein < 0.2 (<1.0) mg/dL Total Protein 7.0 (6.4-8.2) g/dl Albumin 3.8 (3.4-5.0) g/dl Globulin 3.2 gm/dL Albumin/Globulin Ratio 1.2 (1-2) - Re-Assessments/Exams Free Text/Narrative Re-Assessment/Exam: 09/14/19 02:27 Spoke to the patient regarding his blood results that the CBC the chemistry panel and the C-reactive protein were normal. I do not know what is causing his rash but I did suggest to use some hydrocortisone cream 1% [id number] on the area of the rash when it develops and with the itching. Since he has an allergy to histamine blockers in the past I am concerned about giving him any sort of medication that we typically use for allergic reactions. Departure - Departure Time of Disposition: 02:27 Disposition: Home, Self-Care 01 Condition: Good Clinical Impression: Urticaria, Pruritus Allergic reaction Qualifiers: Encounter type: initial encounter Qualified Code(s): T78.40XA - Allergy, unspecified, initial encounter - Discharge Information *PRESCRIPTION DRUG MONITORING PROGRAM REVIEWED*: Not Applicable *COPY OF PRESCRIPTION DRUG MONITORING REPORT IN PATIENT CODY: Not Applicable Instructions: Hives, [id number] Referrals: Romel Kunz MD [Primary Care Provider] - Forms: ED Department Discharge Additional Instructions: Buy some hydrocortisone cream 1% [id number] and use it specifically on the rash when it develops or if it is itching, follow-up with your family doctor next week for recheck and possible testing versus being referral to an harp regulator, return to the ER if your symptoms worsen Sepsis Event Note - Evaluation Sepsis Screening Result: No Definite Risk - Focused Exam Vital Signs: Vital Signs Temp Pulse Resp BP Pulse Ox 09/14/19 00:20 96.2 F 60 16 137/80 96 Date Exam was Performed: 09/14/19 Time Exam was Performed: 02:27
== END 2019-09-14 02:37 | disposition home or self-care (01) ==
LOC: JD.ED 00:10
DX: L50.0 Allergic urticaria (principal); I10 Essential (primary) hypertension; M19.90 Unspecified osteoarthritis, unspecified site; Z79.82 Long term (current) use of aspirin; Z79.899 Other long term (current) drug therapy; Z88.8 Allergy status to other drugs, medicaments and biological substances; Z88.2 Allergy status to sulfonamides; Z88.1 Allergy status to other antibiotic agents; Z91.048 Other nonmedicinal substance allergy status
CPT/HCPCS: 36415; 80053; 85025; 86140; 99282; 99283

== ENCOUNTER 2019-12-01 16:43 | Emergency (ER) | payer MEDICARE, BC ==
[2019-12-01 16:54] VITALS: BP 169/86; PULSE 74
--- NOTE | 2019-12-01 17:14 | EDM.PDOC ---
ED HPI GENERAL MEDICAL PROBLEM - General Chief Complaint: Upper Extremity Injury/Pain Stated Complaint: RT SHOULDER INJURY Time Seen by Provider: 12/01/19 16:57 Source of Information: Reports: Patient, RN Notes Reviewed History Limitations: Reports: No Limitations - History of Present Illness INITIAL COMMENTS - FREE TEXT/NARRATIVE: Patient is a 74-year-old male who presents to the ED for the evaluation of a right shoulder injury. The patient notes he was going down some stairs, and slipped on the very last step which was icy and ended up falling, he believes that he braced himself with his right arm, as he is having pain into his right shoulder at this time. He notes that he is having some limited range of motion of the extremity, he states that it is quite hard to flex his shoulder, he states that he is able to abduct it, adduct it without much difficulty. He notes that just after the injury he had to raise his right arm with his left arm. He states that he has a prior deficit of some numbness and tingling into his fourth and fifth digit due to an ulnar nerve issue, he states this is not increased from his normal baseline numbness/tingling. Patient states he did not hit his head, nor did he blackout, he did not feel dizzy prior to the injury. He is not complaining of any wrist pain, or any elbow pain. Patient did not notice any bruising to the shoulder, nor did he say he landed directly on the shoulder. He did ice the shoulder, but has not taken any sort of medications for pain relief. Right Shoulder Pain Score (Numeric/FACES): 3 - Related Data Allergies Allergy/AdvReac Type Severity Reaction Status Date / Time metronidazole [From Flagyl] Allergy Hives Verified 12/01/19 16:55 Metronidazole HCl Allergy Hives Verified 12/01/19 16:55 [From Flagyl] Sulfa (Sulfonamide Allergy Hives Verified 12/01/19 16:55 Antibiotics) sulfamethoxazole Allergy Nausea Verified 12/01/19 16:55 [From Bactrim] trimethoprim [From Bactrim] Allergy Nausea Verified 12/01/19 16:55 Antihistamines - Alkylamine AdvReac Tachycardia Verified 12/01/19 16:55 celecoxib [From Celebrex] AdvReac Nausea Verified 12/01/19 16:55 ciprofloxacin [From Cipro] AdvReac Nausea Verified 12/01/19 16:55 ciprofloxacin HCl AdvReac Nausea Verified 12/01/19 16:55 [From Cipro] finasteride [From Proscar] AdvReac Anxiety Verified 12/01/19 16:55 ibuprofen AdvReac Nausea Verified 12/01/19 16:55 levofloxacin [From Levaquin] AdvReac Nausea Verified 12/01/19 16:55 naproxen sodium [From Aleve] AdvReac Nausea Verified 12/01/19 16:55 decongestants AdvReac Tachycardia Uncoded 12/01/19 16:55 non-steroidal AdvReac Nausea Uncoded 12/01/19 16:55 anti-inflammatories Home Meds: Home Meds Metoprolol Succinate [Toprol XL] 25 mg PO DAILY 01/08/14 [History] Albuterol [Ventolin HFA] 2 puff INH Q4H PRN #1 puff 08/15/14 [Rx] amLODIPine [Norvasc] 5 mg PO DAILY 12/01/19 [History] Past Medical History HEENT History: Reports: Impaired Vision Cardiovascular History: Reports: Hypertension Genitourinary History: Reports: Prostate Disorder Musculoskeletal History: Reports: Arthritis, Other (See Below) Other Musculoskeletal History: 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 ED EXAM, GENERAL - Physical Exam Exam: See Below Exam Limited By: No Limitations General Appearance: Alert, WD/WN, No Apparent Distress Eye Exam: Bilateral Eye: EOMI, Normal Inspection, PERRL Ears: Normal External Exam, Normal Canal, Hearing Grossly Normal, Normal TMs Nose: Normal Inspection Throat/Mouth: Normal Inspection, Normal Lips, Normal Teeth, Normal Gums, Normal Oropharynx, Normal Voice, No Airway Compromise Head: Atraumatic, Normocephalic Neck: Normal Inspection, Supple, Non-Tender, Full Range of Motion Respiratory/Chest: No Respiratory Distress, Lungs Clear, Normal Breath Sounds, No Accessory Muscle Use, Chest Non-Tender Cardiovascular: Normal Peripheral Pulses, Regular Rate, Rhythm, No Edema, No Murmur Peripheral Pulses: 3+: Radial (L), Radial (R) GI/Abdominal: Normal Bowel Sounds, Soft, Non-Tender, No Distention, No Mass Extremities: Normal Inspection, Normal Capillary Refill, Limited Range of Motion (of right arm at this time. he has half ROM with flexion of shoulder, slight decrease strength with opposition of abduction of R shoulder) Neurological: Alert, Oriented, CN II-XII Intact (grossly), Normal Cognition, No Motor/Sensory Deficits Psychiatric: Normal Affect, Normal Mood Skin Exam: Warm, Dry, Intact, Normal Color, No Rash Course - Vital Signs Last Recorded V/S: Last Vital Signs Temp 97.7 F 12/01/19 16:50 Pulse 74 12/01/19 16:50 Resp 16 12/01/19 16:50 BP 169/86 H 12/01/19 16:50 Pulse Ox 97 12/01/19 16:50 - Orders/Labs/Meds Orders: Active Orders 24 hr Category Date Time Status DME for Discharge [COMM] Routine Oth 12/01/19 18:07 Ordered - Re-Assessments/Exams Free Text/Narrative Re-Assessment/Exam: 12/01/19 17:14 Patient presents to the ED for the evaluation of his right shoulder injury. Did order shoulder x-rays for further evaluation. 12/01/19 17:58 Shoulder x-ray demonstrates no acute abnormalities, there is mild arthritic changes noted however. Departure - Departure Time of Disposition: 18:07 Disposition: Home, Self-Care 01 Condition: Fair Clinical Impression: Right shoulder pain Qualifiers: Chronicity: acute Qualified Code(s): M25.511 - Pain in right shoulder - Discharge Information *PRESCRIPTION DRUG MONITORING PROGRAM REVIEWED*: No *COPY OF PRESCRIPTION DRUG MONITORING REPORT IN PATIENT CODY: No Instructions: Shoulder Pain, How to Use a Sling, [id number] Referrals: Romel Kunz MD [Primary Care Provider] - Forms: ED Department Discharge Additional Instructions: You have been evaluated in the ED for your right shoulder injury. Your x-ray demonstrated no fracture or other acute bony injury. There is some mild arthritis present. Please use ice as tolerated to the affected area. Have been provided with an arm sling, please use as tolerated for a few hours throughout the day to help provide further pain relief. Recommend that you take your arm out and do some range of motion exercises multiple times throughout the day. You may take Tylenol 500 mg or ibuprofen 600mg q6 hrs for pain relief. Please do so until you have a tolerable level of pain with activity. Do not exceed 4000mg Tylenol or 3200mg ibuprofen in a 24 hour time period. If you are noticing that your shoulder range of motion is not getting much better in roughly 10 days time, recommend you have it reevaluated by orthopedics , our orthopedic surgeon is Dr. Mae, , Dr. Arredondo through [facility] at [phone]. Please return to ED if your symptoms should change or worsen. Sepsis Event Note - Evaluation Sepsis Screening Result: No Definite Risk - Focused Exam Vital Signs: Vital Signs Temp Pulse Resp BP Pulse Ox 12/01/19 16:50 97.7 F 74 16 169/86 H 97 Date Exam was Performed: 12/01/19 Time Exam was Performed: 22:48 - My Orders Last 24 Hours: My Active Orders 12/01/19 18:07 DME for Discharge [COMM] Routine - Assessment/Plan Last 24 Hours: My Active Orders 12/01/19 18:07 DME for Discharge [COMM] Routine
--- NOTE | 2019-12-01 17:42 | CR ---
Right shoulder: 3 views of the right shoulder were obtained. Joint space narrowing and minimal inferior spurring is noted within the acromioclavicular joint. Glenohumeral joint appears within normal limits. No fracture, dislocation or other bony abnormality is appreciated. Impression: 1. Slight degenerative change within the acromioclavicular joint. 2. Right shoulder study is otherwise unremarkable. Diagnostic code #2 This report was dictated in [place] Standard Time
== END 2019-12-01 18:15 | disposition home or self-care (01) ==
LOC: JD.ED 16:43
DX: M25.511 Pain in right shoulder (principal); I10 Essential (primary) hypertension; F17.210 Nicotine dependence, cigarettes, uncomplicated; Z88.8 Allergy status to other drugs, medicaments and biological substances; Z88.1 Allergy status to other antibiotic agents; Z88.2 Allergy status to sulfonamides; W00.1XXA Fall from stairs and steps due to ice and snow, initial encounter
CPT/HCPCS: 73030-26-RT; 73030-RT; 99282; 99283-25

== ENCOUNTER 2021-04-14 10:03 | Emergency (ER) | payer MEDICARE, BC ==
[2021-04-14 10:30] VITALS: BP 150/76; PULSE 64
[2021-04-14] MEDS ORDERED: Metoclopramide 10 MG/2 ML SDV IVPUSH ONE (11:18)
[2021-04-14] MEDS ORDERED: Sodium Chloride 0.9% 10 ML Syringe FLUSH PRN (11:18)
[2021-04-14] MEDS ORDERED: Ketorolac 30 MG/ML SDV IVPUSH ONE (11:18)
[2021-04-14] MEDS ORDERED: Sodium Chloride 0.9% 1,000 ML IV ONE (11:18)
--- NOTE | 2021-04-14 11:46 | EDM.PDOC ---
ED HPI GENERAL MEDICAL PROBLEM - General Chief Complaint: Headache Stated Complaint: HEADACHE/VOMITING Time Seen by Provider: 04/14/21 11:02 Source of Information: Reports: Patient, RN Notes Reviewed History Limitations: Reports: No Limitations - History of Present Illness INITIAL COMMENTS - FREE TEXT/NARRATIVE: Patient is a 75-year-old male who presents to the ER for evaluation of his right-sided headache. Notes that he has had a headache on the right side of his head for the past 3 days. He was seen at the walk-in clinic, a few days ago and did have some labs, and further testing and everything seemed to be normal, they thought maybe he had a virus, and sent him home with some Flonase and told him to follow-up with his primary care provider. He did try the Flonase last night, but again has had a headache today that seems to be worse than normal, so he comes to the ER for management. Notes that he had a headache like this a few weeks ago, and had a bunch of tests at that time and again everything was normal. 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 Patient did have 1 episode of nausea and vomiting this morning, but he said no fever, chills, cough/shortness of breath, worsening nasal congestion. She does state that he had some recent dental work on February 05, and had a full dental plate placed to his upper jaw. Notes that he is been having issues with fitment of this since. He has not taken anything at home for the headache. He does have quite a few allergies, to NSAIDs, and antibiotics, and antihistamines, so treatment for him is somewhat limited by his account. Primary care provider is Dr. Kunz. He is not complaining of any blurred vision or double vision, or any other neurological deficits. Headache Pain Score (Numeric/FACES): 10 - Related Data Allergies Allergy/AdvReac Type Severity Reaction Status Date / Time metronidazole [From Flagyl] Allergy Hives Verified 04/14/21 10:29 Metronidazole HCl Allergy Hives Verified 04/14/21 10:29 [From Flagyl] Sulfa (Sulfonamide Allergy Hives Verified 04/14/21 10:29 Antibiotics) sulfamethoxazole Allergy Nausea Verified 04/14/21 10:29 [From Bactrim] trimethoprim [From Bactrim] Allergy Nausea Verified 04/14/21 10:29 Antihistamines - Alkylamine AdvReac Tachycardia Verified 04/14/21 10:29 celecoxib [From Celebrex] AdvReac Nausea Verified 04/14/21 10:29 ciprofloxacin [From Cipro] AdvReac Nausea Verified 04/14/21 10:29 ciprofloxacin HCl AdvReac Nausea Verified 04/14/21 10:29 [From Cipro] finasteride [From Proscar] AdvReac Anxiety Verified 04/14/21 10:29 ibuprofen AdvReac Nausea Verified 04/14/21 10:29 levofloxacin [From Levaquin] AdvReac Nausea Verified 04/14/21 10:29 naproxen sodium [From Aleve] AdvReac Nausea Verified 04/14/21 10:29 decongestants AdvReac Tachycardia Uncoded 12/01/19 16:55 non-steroidal AdvReac Nausea Uncoded 12/01/19 16:55 anti-inflammatories Home Meds: Home Meds Metoprolol Succinate [Toprol XL] 25 mg PO DAILY 01/08/14 [History] Albuterol [Ventolin HFA] 2 puff INH Q4H PRN #1 puff 08/15/14 [Rx] amLODIPine [Norvasc] 5 mg PO DAILY 12/01/19 [History] Doxycycline [Vibramycin] 100 mg PO BID 14 Days #28 tab 04/14/21 [Rx] Past Medical History HEENT History: Reports: Impaired Vision Cardiovascular History: Reports: Hypertension Genitourinary History: Reports: Prostate Disorder Musculoskeletal History: Reports: Arthritis, Other (See Below) Other Musculoskeletal History: 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 Dermatologic History: Reports: Seborrheic Dermatitis - Past Surgical History HEENT Surgical History: Reports: Other (See Below) Other HEENT Surgeries/Procedures: 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 Male Surgical History: Reports: TURP-Transurethral Resection of Prostate Social & Family History - Family History Family Medical History: No Pertinent Family History - Tobacco Use Tobacco Use Status *Q: Current Status Unknown - Caffeine Use Caffeine Use: Reports: Coffee ED ROS GENERAL - Review of Systems Review Of Systems: Comprehensive ROS is negative, except as noted in HPI. - Physical Exam Exam: See Below Exam Limited By: No Limitations General Appearance: Alert, WD/WN, No Apparent Distress Respiratory/Chest: No Respiratory Distress, Lungs Clear, Normal Breath Sounds, No Accessory Muscle Use, Chest Non-Tender Cardiovascular: Normal Peripheral Pulses, Regular Rate, Rhythm, No Edema Neuro Exam (Abbreviated): Alert, Oriented, Normal Cognition, No Motor/Sensory Deficits Extremities: Normal Inspection, Normal Capillary Refill Psychiatric: Normal Affect, Normal Mood Skin Exam: Warm, Dry, Intact, Normal Color, No Rash Course - Vital Signs Last Recorded V/S: Last Vital Signs Temp 97.9 F 04/14/21 10:26 Pulse 64 04/14/21 10:26 Resp 18 04/14/21 10:26 BP 150/76 H 04/14/21 10:26 Pulse Ox 95 04/14/21 10:26 - Orders/Labs/Meds Orders: Active Orders 24 hr Category Date Time Status Peripheral IV Care [RC] . DIRECTED Care 04/14/21 11:19 Ordered Sodium Chloride 0.9% [Saline Flush] Med 04/14/21 11:18 Active 10 ml FLUSH ASDIRECTED PRN Peripheral IV Insertion Adult [OM.PC] Routine Oth 04/14/21 11:19 Ordered Medication Orders Sodium Chloride (Sodium Chloride 0.9% 10 Ml Syringe) 10 ml FLUSH ASDIRECTED PRN PRN Reason: Keep Vein Open Last Admin: 04/14/21 11:27 Dose: 10 ml Documented by: SANTINO Labs: Laboratory Tests 04/14/21 04/14/21 Range/Units 10:29 10:29 WBC 10.40 H (4.23-9.07) K/mm3 RBC 5.19 (4.63-6.08) M/mm3 Hgb 16.0 (13.7-17.5) gm/dl Hct 47.7 (40.1-51.0) % MCV 91.9 (79.0-92.2) fl MCH 30.8 (25.7-32.2) pg MCHC 33.5 (32.2-35.5) g/dl RDW Std Deviation 43.8 (35.1-43.9) fL Plt Count 321 (163-337) K/mm3 MPV 9.2 L (9.4-12.3) fl Neut % (Auto) 65.2 (34.0-67.9) % Lymph % (Auto) 19.5 L (21.8-53.1) % [place] % (Auto) 11.6 (5.3-12.2) % Eos % (Auto) 2.5 (0.8-7.0) Baso % (Auto) 0.9 (0.1-1.2) % Neut # (Auto) 6.78 H (1.78-5.38) K/mm3 Lymph # (Auto) 2.03 (1.32-3.57) K/mm3 [place] # (Auto) 1.21 H (0.30-0.82) K/mm3 Eos # (Auto) 0.26 (0.04-0.54) K/mm3 Baso # (Auto) 0.09 H (0.01-0.08) K/mm3 Sodium 139 (136-145) mEq/L Potassium 4.1 (3.5-5.1) mEq/L Chloride 105 (98-107) mEq/L Carbon Dioxide 25 (21-32) mEq/L Anion Gap 13.1 (5-15) BUN 10 (7-18) mg/dL Creatinine 0.8 (0.7-1.3) mg/dL Est Cr Clr Drug Dosing 82.38 mL/min Estimated GFR (MDRD) > 60 (>60) mL/min BUN/Creatinine Ratio 12.5 L (14-18) Glucose 141 H (70-99) mg/dL Calcium 8.9 (8.5-10.1) mg/dL Total Bilirubin 0.5 (0.2-1.0) mg/dL AST 30 (15-37) U/L ALT 23 (16-63) U/L Alkaline Phosphatase 116 (46-116) U/L Total Protein 7.2 (6.4-8.2) g/dl Albumin 3.4 (3.4-5.0) g/dl Globulin 3.8 gm/dL Albumin/Globulin Ratio 0.9 L (1-2) Meds: Medications Generic Name Dose Route Start Last Admin Trade Name Freq PRN Reason Stop Dose Admin Sodium Chloride 10 ml 04/14/21 11:18 04/14/21 11:27 Sodium Chloride 0.9% 10 Ml Syringe FLUSH 10 ml ASDIRECTED PRN Administration Keep Vein Open Discontinued Medications Generic Name Dose Route Start Last Admin Trade Name Linda PRN Reason Stop Dose Admin Hydromorphone HCl 0.5 mg 04/14/21 12:21 Hydromorphone 0.5 Mg/0.5 Ml Syringe IVPUSH 04/14/21 12:22 ONETIME ONE Sodium Chloride 1,000 mls @ 999 mls/hr 04/14/21 11:18 04/14/21 11:27 Normal Saline IV 04/14/21 12:18 999 mls/hr ASDIRECTED ONE Administration Ketorolac Tromethamine 30 mg 04/14/21 11:18 04/14/21 11:27 Ketorolac 30 Mg/Ml Sdv IVPUSH 04/14/21 11:19 30 mg ONETIME ONE Administration Metoclopramide HCl 10 mg 04/14/21 11:18 04/14/21 11:27 Metoclopramide 10 Mg/2 Ml Sdv IVPUSH 04/14/21 11:19 10 mg ONETIME ONE Administration - Re-Assessments/Exams Free Text/Narrative Re-Assessment/Exam: 04/14/21 11:48 Patient presents to the ER for his headache, labs were obtained at time of triage, and patient did have somewhat extended wait time to see her provider due to patient count in the ER. I have ordered some medications for the gentleman's headache, and a head and maxillofacial CT for ongoing investigation. Labs did not demonstrate any acute sign of bacterial infection or other electrolyte abnormalities that could be causing the issues. Scans have been completed but official radiology read is still pending. 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 Other small osteomas are noted within the right ethmoid sinus, with largest ones measuring 9 mm and 5 mm. Findings are most consistent with chronic paranasal sinus findings. Head CT demonstrated no acute bleeds or other major issues. There is some mild senescent change. 04/14/21 12:30 I did go over the CT findings with Dr. Mendoza, ENT on-call through [facility] in [place], and he recommends placing the patient on doxycycline for 2 weeks, doing saline rinses, and also continue with the Flonase and have him follow-up with his primary care provider. He states that the osteomas are a benign finding, unless they are blocking the sinuses, then they can be dealt with at that point however conservative measures should be tried before more stringent measures are warranted. I will go over these findings with the patient, he states that his headache was not much better, so did order 0.5 mg IV Dilaudid for ongoing pain management. Departure - Departure Time of Disposition: 12:39 Disposition: Home, Self-Care 01 Condition: Good Clinical Impression: Sinusitis, chronic Qualifiers: Sinusitis location: pansinusitis Qualified Code(s): J32.4 - Chronic pansinusitis - Discharge Information *PRESCRIPTION DRUG MONITORING PROGRAM REVIEWED*: No *COPY OF PRESCRIPTION DRUG MONITORING REPORT IN PATIENT CODY: No Prescriptions: Doxycycline [Vibramycin] 100 mg PO BID 14 Days #28 tab Instructions: Sinus Headache, [id number], Sinusitis, Adult, [id number] Referrals: Romel Kunz MD [Primary Care Provider] - Forms: ED Department Discharge Additional Instructions: You were evaluated in the ER today for your headache. You had some laboratory evaluation, and a head CT and sinus CT performed at today's visit. Laboratory evaluation was essentially unremarkable, but the sinus CT did demonstrate chronic sinusitis issues, in quite a few different sinus cavities in your head. Your CT also demonstrated some benign, or nonconcerning findings, that were discussed with ENT as well. Treatment for this will be oral antibiotics to include doxycycline, 1 tablet 2 times a day for the next 14 days. You will need to continue the Flonase as previously prescribed by care providers, and start using a nasal sinus rinse, NeilMed sinus rinse, and a pressurized can may work the best for you as it seems to be fairly tolerable however you may use a Tory pot, or the other nonpressurized sinus rinse for ongoing management. Please try to use this at least once a day, if not twice a day for the next week or so to see if this helps relieve some of the issues. The antibiotic was electronically sent to the [facility] located on [address] [place]. Your case was discussed with Dr. Mendoza, ENT staff sonographer in [place], regarding your chronic sinusitis, and multiple antibiotic allergies. If you do not think that this is providing you benefit, please follow-up with Dr. Kunz your primary care provider, sometime within the next week to 14 days, for ongoing referral to ENT for further management. Please note that you will need to do this conservative management, for about a week to start seeing benefit. As for the headache, you may use Tylenol, 500 mg or 650 mg every 6 hours as needed for ongoing headache management. Please do not exceed 4000 mg Tylenol in a 24-hour time span. Do not hesitate to return to the ER at any time if symptoms change or worsen. Sepsis Event Note (ED) - Evaluation Sepsis Screening Result: No Definite Risk - Focused Exam Vital Signs: Vital Signs Temp Pulse Resp BP Pulse Ox 04/14/21 10:26 97.9 F 64 18 150/76 H 95 - My Orders Last 24 Hours: My Active Orders 04/14/21 11:18 Sodium Chloride 0.9% [Saline Flush] 10 ml FLUSH ASDIRECTED PRN 04/14/21 11:19 Peripheral IV Care [RC] . DIRECTED Peripheral IV Insertion Adult [OM.PC] Routine - Assessment/Plan Last 24 Hours: My Active Orders 04/14/21 11:18 Sodium Chloride 0.9% [Saline Flush] 10 ml FLUSH ASDIRECTED PRN 04/14/21 11:19 Peripheral IV Care [RC] . DIRECTED Peripheral IV Insertion Adult [OM.PC] Routine
--- NOTE | 2021-04-14 11:53 | CT ---
Head CT Technique: Multiple axial sections through the brain were obtained. Intravenous contrast was not utilized. Gurjit: No prior intracranial imaging is available. Findings: Ventricles along with basal cisterns and sulci over the convexities are mildly prominent. Minimal areas of diminished density are scattered within the periventricular white matter compatible with small vessel ischemic demyelination change. No other abnormal parenchymal densities are seen. No evidence of intracranial hemorrhage is seen. No midline shift or mass-effect is seen. Atherosclerotic calcification is seen within the vertebral vessels and carotid siphon. Bone window settings were reviewed which show no acute finding within the mastoid sinuses. Mucosal thickening is seen within the left maxillary sinus as well as sphenoid, ethmoid and frontal sinuses. There is an osteoma being seen within the left frontal sinus. Impression: 1. Findings within the paranasal sinuses most likely chronic. 2. Mild senescent change as noted above. 3. No acute intracranial abnormality is appreciated. Diagnostic code #2
--- NOTE | 2021-04-14 11:57 | CT ---
CT paranasal sinuses Technique: Multiple axial sections through the paranasal sinuses were obtained. Reconstructed coronal and sagittal images were obtained. Intravenous contrast was not utilized. Findings: Mucosal thickening is seen within both maxillary sinuses as well as probable small superimposed retention cysts within both maxillary sinuses. Mucosal thickening is seen within the maxillary ostia. Prominent mucosal thickening is seen throughout the ethmoid sinuses. Opacification of the right frontal sinus is seen. Moderate mucosal thickening is seen within both sides of the sphenoid sinus. Osteoma is seen within the left frontal sinus measuring 1.2 cm. Smaller osteoma is noted within the right frontal sinus measuring 7 mm. Several small osteomas are noted within the right ethmoid sinus with the largest ones measuring 9 mm and 5 mm. Mastoid sinuses show nothing acute. No fluid levels are seen within the paranasal sinuses. No acute osseous abnormality is seen within the facial structures. Impression: 1. Chronic paranasal sinus findings as noted above. Diagnostic code #3
[2021-04-14] MEDS ORDERED: HYDROmorphone 0.5 MG/0.5 ML Syringe IVPUSH ONE (12:21)
== END 2021-04-14 13:05 | disposition home or self-care (01) ==
LOC: JD.ED 10:03
DX: J32.4 Chronic pansinusitis (principal); I10 Essential (primary) hypertension; Z88.1 Allergy status to other antibiotic agents; Z88.2 Allergy status to sulfonamides; Z88.5 Allergy status to narcotic agent; Z88.8 Allergy status to other drugs, medicaments and biological substances
CPT/HCPCS: 36415; 70450; 70486; 80053; 85025; 96374; 96375; 99284; J1170; J1885; J2765; J7030

== ENCOUNTER 2021-04-18 08:58 | Emergency (ER) | payer MEDICARE, BC ==
[2021-04-18 09:24] VITALS: BP 130/82; PULSE 50
--- NOTE | 2021-04-18 09:49 | EDM.PDOC ---
ED HPI GENERAL MEDICAL PROBLEM - General Chief Complaint: General Stated Complaint: SIDE EFFECTS FROM MEDS HE RECEIVED WED Time Seen by Provider: 04/18/21 09:48 - History of Present Illness INITIAL COMMENTS - FREE TEXT/NARRATIVE: 75-year-old male presents the emergency room with darker urine than normal. Patient was seen here on Monday for headache that is much better. However he was started on doxycycline 100 mg twice daily for 2 weeks at the recommendation of ENT as he has a lot of sinus congestion and problems. Patient has any fevers or chills. Last evening the patient noticed that his urine was more of a brownish color rather than the yellow color its not a dark brown. But he thought it resembled more of a tea color. Other than this he is not having any other complaints. He is not having any out of the ordinary extremity or back pain. Denies recent injury. - Related Data Allergies Allergy/AdvReac Type Severity Reaction Status Date / Time metronidazole [From Flagyl] Allergy Hives Verified 04/18/21 09:24 Metronidazole HCl Allergy Hives Verified 04/18/21 09:24 [From Flagyl] Sulfa (Sulfonamide Allergy Hives Verified 04/18/21 09:24 Antibiotics) sulfamethoxazole Allergy Nausea Verified 04/18/21 09:24 [From Bactrim] trimethoprim [From Bactrim] Allergy Nausea Verified 04/18/21 09:24 Antihistamines - Alkylamine AdvReac Tachycardia Verified 04/18/21 09:24 celecoxib [From Celebrex] AdvReac Nausea Verified 04/18/21 09:24 ciprofloxacin [From Cipro] AdvReac Nausea Verified 04/18/21 09:24 ciprofloxacin HCl AdvReac Nausea Verified 04/18/21 09:24 [From Cipro] finasteride [From Proscar] AdvReac Anxiety Verified 04/18/21 09:24 ibuprofen AdvReac Nausea Verified 04/18/21 09:24 levofloxacin [From Levaquin] AdvReac Nausea Verified 04/18/21 09:24 naproxen sodium [From Aleve] AdvReac Nausea Verified 04/18/21 09:24 decongestants AdvReac Tachycardia Uncoded 04/18/21 09:24 non-steroidal AdvReac Nausea Uncoded 04/18/21 09:24 anti-inflammatories Home Meds: Home Meds Metoprolol Succinate [Toprol XL] 25 mg PO DAILY 01/08/14 [History] Albuterol [Ventolin HFA] 2 puff INH Q4H PRN #1 puff 08/15/14 [Rx] amLODIPine [Norvasc] 5 mg PO DAILY 12/01/19 [History] Doxycycline [Vibramycin] 100 mg PO BID 14 Days #28 tab 04/14/21 [Rx] Past Medical History HEENT History: Reports: Impaired Vision Cardiovascular History: Reports: Hypertension Genitourinary History: Reports: Prostate Disorder Musculoskeletal History: Reports: Arthritis, Other (See Below) Other Musculoskeletal History: R ulnar nerve issue with residual numbness/t ingling to 4th-5th digits. Endocrine/Metabolic History: Reports: Obesity/BMI 30+ Dermatologic History: Reports: Seborrheic Dermatitis - Infectious Disease History Infectious Disease History: Reports: Measles - Past Surgical History HEENT Surgical History: Reports: Other (See Below) Other HEENT Surgeries/Procedures: melanoma to posterior eye removal 2012 Male Surgical History: Reports: TURP-Transurethral Resection of Prostate Social & Family History - Family History Family Medical History: No Pertinent Family History - Tobacco Use Tobacco Use Status *Q: Current Every Day Tobacco User Years of Tobacco use: 30 Packs/Tins Daily: 0.7 - Caffeine Use Caffeine Use: Reports: Coffee, Soda - Recreational Drug Use Recreational Drug Use: No ED ROS GENERAL - Review of Systems Review Of Systems: See Below Constitutional: Reports: No Symptoms Respiratory: Reports: No Symptoms Cardiovascular: Reports: No Symptoms GI/Abdominal: Reports: No Symptoms : Reports: Other (See history of present illness). Denies: Discharge, Dysuria, Flank Pain, Frequency, Urgency Musculoskeletal: Reports: No Symptoms ED EXAM, GENERAL - Physical Exam Exam: See Below Exam Limited By: No Limitations General Appearance: Alert, No Apparent Distress Head: Atraumatic, Normocephalic Neck: Normal Inspection, Supple, Non-Tender, Full Range of Motion Respiratory/Chest: No Respiratory Distress, Lungs Clear Cardiovascular: Regular Rate, Rhythm, No Edema, Systolic Murmur (Soft 2/6 holosystolic) GI/Abdominal: Normal Bowel Sounds, Soft, Non-Tender Extremities: Normal Inspection, Non-Tender, No Pedal Edema Neurological: Alert, Oriented, Normal Cognition Course - Vital Signs Last Recorded V/S: Last Vital Signs Temp 36.3 C 07/25/21 09:19 Pulse 50 L 04/18/21 09:19 Resp 16 04/18/21 09:19 BP 130/82 04/18/21 09:19 Pulse Ox 97 04/18/21 09:19 - Orders/Labs/Meds Orders: Active Orders 24 hr Category Date Time Status CBC WITH AUTO DIFF [HEME] Stat Lab 04/18/21 10:23 Results Labs: Laboratory Tests 04/18/21 04/18/21 04/18/21 Range/Units 10:00 10:23 10:23 WBC 9.51 H (4.23-9.07) K/mm3 RBC 4.68 (4.63-6.08) M/mm3 Hgb 14.4 D (13.7-17.5) gm/dl Hct 43.5 (40.1-51.0) % MCV 92.9 H (79.0-92.2) fl MCH 30.8 (25.7-32.2) pg MCHC 33.1 (32.2-35.5) g/dl RDW Std Deviation 43.7 (35.1-43.9) fL Plt Count 308 (163-337) K/mm3 MPV 9.0 L (9.4-12.3) fl Neut % (Auto) 57.7 (34.0-67.9) % Lymph % (Auto) 27.2 (21.8-53.1) % [place] % (Auto) 10.4 (5.3-12.2) % Eos % (Auto) 3.4 (0.8-7.0) Baso % (Auto) 1.1 (0.1-1.2) % Neut # (Auto) 5.49 H (1.78-5.38) K/mm3 Lymph # (Auto) 2.59 (1.32-3.57) K/mm3 [place] # (Auto) 0.99 H (0.30-0.82) K/mm3 Eos # (Auto) 0.32 (0.04-0.54) K/mm3 Baso # (Auto) 0.10 H (0.01-0.08) K/mm3 Sodium 140 (136-145) mEq/L Potassium 4.0 (3.5-5.1) mEq/L Chloride 106 (98-107) mEq/L Carbon Dioxide 28 (21-32) mEq/L Anion Gap 10.0 (5-15) BUN 11 (7-18) mg/dL Creatinine 0.8 (0.7-1.3) mg/dL Est Cr Clr Drug Dosing 82.38 mL/min Estimated GFR (MDRD) > 60 (>60) mL/min BUN/Creatinine Ratio 13.8 L (14-18) Glucose 95 (70-99) mg/dL Calcium 8.9 (8.5-10.1) mg/dL Total Bilirubin 0.3 (0.2-1.0) mg/dL AST 32 (15-37) U/L ALT 24 (16-63) U/L Alkaline Phosphatase 95 (46-116) U/L Creatine Kinase 40 (39-308) U/L Total Protein 6.9 (6.4-8.2) g/dl Albumin 3.4 (3.4-5.0) g/dl Globulin 3.5 gm/dL Albumin/Globulin Ratio 1.0 (1-2) Urine Color Yellow (Yellow) Urine Appearance Clear (Clear) Urine pH 6.0 (5.0-8.0) Ur Specific [place] 1.020 (1.005-1.030) Urine Protein Negative (Negative) Urine Glucose (UA) Negative (Negative) Urine Ketones Negative (Negative) Urine Occult Blood 2+ H (Negative) Urine Nitrite Negative (Negative) Urine Bilirubin Negative (Negative) Urine Urobilinogen 0.2 (0.2-1.0) Ur Leukocyte Esterase Negative (Negative) Urine RBC 10-20 H (0-5) /hpf Urine WBC 0-5 (0-5) /hpf Ur Squamous Epith Cells 0-5 (0-5) /hpf Urine Bacteria Not seen (FEW) /hpf Urine Mucus Few (FEW) /hpf - Re-Assessments/Exams Free Text/Narrative Re-Assessment/Exam: 04/18/21 11:58 He has microscopic hematuria on his urine no other suggestions of a UTI. He does have a history of having a few red cells in his urine. Kidney function looks good CPK is normal labs otherwise nonconcerning. At this point will advise him to push plenty of fluids and follow-up with his regular physician later this week. Departure - Departure Time of Disposition: 11:59 Disposition: Home, Self-Care Clinical Impression: Microscopic hematuria - Discharge Information Referrals: Romel Kunz MD [Primary Care Provider] - Forms: ED Department Discharge Additional Instructions: Return to the emergency room with any questions problems or concerning symptoms. Follow-up with your physician the middle of this week. Push lots of fluids. Stay well-hydrated with this heat. Sepsis Event Note (ED) - Evaluation Sepsis Screening Result: No Definite Risk - Focused Exam Vital Signs: Vital Signs Temp Pulse Resp BP Pulse Ox 04/18/21 09:19 36.3 C 50 L 16 130/82 97 - My Orders Last 24 Hours: My Active Orders 04/18/21 10:23 CBC WITH AUTO DIFF [HEME] Stat - Assessment/Plan Last 24 Hours: My Active Orders 04/18/21 10:23 CBC WITH AUTO DIFF [HEME] Stat
== END 2021-04-18 12:13 | disposition home or self-care (01) ==
LOC: JD.ED 08:58
DX: R31.29 Other microscopic hematuria (principal); I10 Essential (primary) hypertension; E66.9 Obesity, unspecified; Z88.1 Allergy status to other antibiotic agents; Z88.8 Allergy status to other drugs, medicaments and biological substances; Z88.5 Allergy status to narcotic agent; Z72.0 Tobacco use; Z88.2 Allergy status to sulfonamides; Z68.31 Body mass index [BMI] 31.0-31.9, adult
CPT/HCPCS: 36415; 80053; 81001; 82550; 85025; 99283

== ENCOUNTER 2021-09-22 16:48 | Emergency (ER) | payer MEDICARE, BC ==
[2021-09-22 17:26] VITALS: BP 156/74; PULSE 51
[2021-09-22] MEDS ORDERED: Sodium Chloride 0.9% 10 ML Syringe FLUSH PRN (17:55)
[2021-09-22] MEDS ORDERED: Sodium Chloride 0.9% 1,000 ML IV ONE (18:05)
--- NOTE | 2021-09-22 18:09 | EDM.PDOC ---
ED HPI GENERAL MEDICAL PROBLEM - General Chief Complaint: General Stated Complaint: WEAK DEHYDRATED Time Seen by Provider: 09/22/21 17:54 Source of Information: Reports: Patient, RN Notes Reviewed History Limitations: Reports: No Limitations - History of Present Illness INITIAL COMMENTS - FREE TEXT/NARRATIVE: Patient is a 76-year-old male who presents to the ER for evaluation of his generalized weakness. States that he has not been feeling well for about 1 week. He states just generally lethargic, has had no appetite. He is not complaining of any nausea or vomiting, no fevers or chills rigors or cough or shortness of breath. States he just generally does not feel well. Primary care providers Dr. Kunz. He has not been around anyone that is been sick that he is aware of. He did not receive the COVID shot or flu shot this year. States that he received a flu shot 1 year and hospitalized in for 3 days, so he was told never to take it again. - Related Data Allergies Allergy/AdvReac Type Severity Reaction Status Date / Time metronidazole [From Flagyl] Allergy Hives Verified 09/22/21 17:27 Metronidazole HCl Allergy Hives Verified 09/22/21 17:27 [From Flagyl] Sulfa (Sulfonamide Allergy Hives Verified 09/22/21 17:27 Antibiotics) Antihistamines - Alkylamine AdvReac Tachycardia Verified 09/22/21 17:27 celecoxib [From Celebrex] AdvReac Nausea Verified 09/22/21 17:27 ciprofloxacin [From Cipro] AdvReac Nausea Verified 09/22/21 17:27 ciprofloxacin HCl AdvReac Nausea Verified 09/22/21 17:27 [From Cipro] finasteride [From Proscar] AdvReac Anxiety Verified 09/22/21 17:27 ibuprofen AdvReac Nausea Verified 09/22/21 17:27 levofloxacin [From Levaquin] AdvReac Nausea Verified 09/22/21 17:27 naproxen sodium [From Aleve] AdvReac Nausea Verified 09/22/21 17:27 NSAIDS (Non-Steroidal AdvReac Nausea Verified 09/22/21 17:27 Anti-Inflamma sulfamethoxazole AdvReac Nausea Verified 09/22/21 17:27 [From Bactrim] trimethoprim [From Bactrim] AdvReac Nausea Verified 12/29/21 17:27 decongestants AdvReac Tachycardia Uncoded 09/22/21 17:27 Home Meds: Home Meds Metoprolol Succinate [Toprol XL] 50 mg PO DAILY 01/08/14 [History] amLODIPine [Norvasc] 5 mg PO DAILY 12/01/19 [History] Aspirin 81 mg PO DAILY 09/22/21 [History] Past Medical History HEENT History: Reports: Cataract, Impaired Vision Cardiovascular History: Reports: Hypertension Respiratory History: Reports: Asthma Genitourinary History: Reports: Prostate Disorder Musculoskeletal History: Reports: Arthritis, Other (See Below) Other Musculoskeletal History: 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 ED EXAM, GENERAL - Physical Exam Exam: See Below Exam Limited By: No Limitations General Appearance: Alert, WD/WN, No Apparent Distress Throat/Mouth: Normal Inspection, Normal Lips, Normal Teeth, Normal Gums, Normal Oropharynx, Normal Voice, No Airway Compromise Respiratory/Chest: No Respiratory Distress, Lungs Clear, Normal Breath Sounds, No Accessory Muscle Use, Chest Non-Tender Cardiovascular: Normal Peripheral Pulses, Regular Rate, Rhythm, No Edema GI/Abdominal: Normal Bowel Sounds, Soft, Non-Tender, No Distention, No Mass Extremities: Normal Inspection, Normal Capillary Refill Neurological: Alert, Oriented, Normal Cognition, No Motor/Sensory Deficits Psychiatric: Normal Affect, Normal Mood Skin Exam: Warm, Dry, Intact, Normal Color, No Rash Course - Vital Signs Last Recorded V/S: Last Vital Signs Temp 97.8 F 09/22/21 17:24 Pulse 51 L 09/22/21 17:24 Resp 16 09/22/21 17:24 BP 156/74 H 09/22/21 17:24 Pulse Ox 98 09/22/21 17:24 - Orders/Labs/Meds Orders: Active Orders 24 hr Category Date Time Status Peripheral IV Care [RC] . DIRECTED Care 09/22/21 17:55 Ordered CULTURE URINE [MREF] Urgent Lab 09/22/21 19:59 Ordered Sodium Chloride 0.9% [Saline Flush] Med 09/22/21 17:55 Ordered 10 ml FLUSH ASDIRECTED PRN Peripheral IV Insertion Adult [OM.PC] Routine Oth 09/22/21 17:55 Ordered Medication Orders Sodium Chloride (Sodium Chloride 0.9% 10 Ml Syringe) 10 ml FLUSH ASDIRECTED PRN PRN Reason: Keep Vein Open Last Admin: 09/22/21 18:26 Dose: 10 ml Documented by: HERMMIC Labs: Laboratory Tests 09/22/21 09/22/21 09/22/21 Range/Units 18:20 18:20 18:20 WBC 6.21 (4.23-9.07) K/mm3 RBC 5.18 (4.63-6.08) M/mm3 Hgb 15.7 (13.7-17.5) gm/dl Hct 47.0 (40.1-51.0) % MCV 90.7 (79.0-92.2) fl MCH 30.3 (25.7-32.2) pg MCHC 33.4 (32.2-35.5) g/dl RDW Std Deviation 44.7 H (35.1-43.9) fL Plt Count 266 (163-337) K/mm3 MPV 8.9 L (9.4-12.3) fl Neut % (Auto) 42.8 (34.0-67.9) % Lymph % (Auto) 43.0 (21.8-53.1) % Dolores % (Auto) 11.6 (5.3-12.2) % Eos % (Auto) 1.8 (0.8-7.0) Baso % (Auto) 0.5 (0.1-1.2) % Neut # (Auto) 2.66 (1.78-5.38) K/mm3 Lymph # (Auto) 2.67 (1.32-3.57) K/mm3 Dolores # (Auto) 0.72 (0.30-0.82) K/mm3 Eos # (Auto) 0.11 (0.04-0.54) K/mm3 Baso # (Auto) 0.03 (0.01-0.08) K/mm3 Sodium 140 (136-145) mEq/L Potassium 4.1 (3.5-5.1) mEq/L Chloride 105 (98-107) mEq/L Carbon Dioxide 25 (21-32) mEq/L Anion Gap 14.1 (5-15) BUN 11 (7-18) mg/dL Creatinine 0.7 (0.7-1.3) mg/dL Est Cr Clr Drug Dosing 89.78 mL/min Estimated GFR (MDRD) > 60 (>60) mL/min BUN/Creatinine Ratio 15.7 (14-18) Glucose 89 (70-99) mg/dL Calcium 8.2 L (8.5-10.1) mg/dL Magnesium 2.0 (1.8-2.4) mg/dL Total Bilirubin 0.6 (0.2-1.0) mg/dL AST 50 H (15-37) U/L ALT 32 (16-63) U/L Alkaline Phosphatase 76 (46-116) U/L C-Reactive Protein <0.2 (<1.0) mg/dL Total Protein 6.4 (6.4-8.2) g/dl Albumin 3.5 (3.4-5.0) g/dl Globulin 2.9 gm/dL Albumin/Globulin Ratio 1.2 (1-2) Urine Color (Yellow) Urine Appearance (Clear) Urine pH (5.0-8.0) Ur Specific Elrod (1.005-1.030) Urine Protein (Negative) Urine Glucose (UA) (Negative) Urine Ketones (Negative) Urine Occult Blood (Negative) Urine Nitrite (Negative) Urine Bilirubin (Negative) Urine Urobilinogen (0.2-1.0) Ur Leukocyte Esterase (Negative) Urine RBC (0-5) /hpf Urine WBC (0-5) /hpf Ur Squamous Epith Cells (0-5) /hpf Urine Bacteria (FEW) /hpf Urine Mucus (FEW) /hpf Influenza Type A RNA (NEGATIVE) Influenza Type B RNA (NEGATIVE) SARS-CoV-2 RNA (NAMRATA) (NEGATIVE) 09/22/21 09/22/21 Range/Units 18:20 19:16 WBC (4.23-9.07) K/mm3 RBC (4.63-6.08) M/mm3 Hgb (13.7-17.5) gm/dl Hct (40.1-51.0) % MCV (79.0-92.2) fl MCH (25.7-32.2) pg MCHC (32.2-35.5) g/dl RDW Std Deviation (35.1-43.9) fL Plt Count (163-337) K/mm3 MPV (9.4-12.3) fl Neut % (Auto) (34.0-67.9) % Lymph % (Auto) (21.8-53.1) % Dolores % (Auto) (5.3-12.2) % Eos % (Auto) (0.8-7.0) Baso % (Auto) (0.1-1.2) % Neut # (Auto) (1.78-5.38) K/mm3 Lymph # (Auto) (1.32-3.57) K/mm3 Dolores # (Auto) (0.30-0.82) K/mm3 Eos # (Auto) (0.04-0.54) K/mm3 Baso # (Auto) (0.01-0.08) K/mm3 Sodium (136-145) mEq/L Potassium (3.5-5.1) mEq/L Chloride (98-107) mEq/L Carbon Dioxide (21-32) mEq/L Anion Gap (5-15) BUN (7-18) mg/dL Creatinine (0.7-1.3) mg/dL Est Cr Clr Drug Dosing mL/min Estimated GFR (MDRD) (>60) mL/min BUN/Creatinine Ratio (14-18) Glucose (70-99) mg/dL Calcium (8.5-10.1) mg/dL Magnesium (1.8-2.4) mg/dL Total Bilirubin (0.2-1.0) mg/dL AST (15-37) U/L ALT (16-63) U/L Alkaline Phosphatase (46-116) U/L C-Reactive Protein (<1.0) mg/dL Total Protein (6.4-8.2) g/dl Albumin (3.4-5.0) g/dl Globulin gm/dL Albumin/Globulin Ratio (1-2) Urine Color Yellow (Yellow) Urine Appearance Clear (Clear) Urine pH 7.0 (5.0-8.0) Ur Specific Elrod 1.015 (1.005-1.030) Urine Protein Trace H (Negative) Urine Glucose (UA) Negative (Negative) Urine Ketones Negative (Negative) Urine Occult Blood Negative (Negative) Urine Nitrite Negative (Negative) Urine Bilirubin Negative (Negative) Urine Urobilinogen 1.0 (0.2-1.0) Ur Leukocyte Esterase Trace H (Negative) Urine RBC 0-5 (0-5) /hpf Urine WBC 5-10 H (0-5) /hpf Ur Squamous Epith Cells 0-5 (0-5) /hpf Urine Bacteria Few (FEW) /hpf Urine Mucus Few (FEW) /hpf Influenza Type A RNA Positive H (NEGATIVE) Influenza Type B RNA Negative (NEGATIVE) SARS-CoV-2 RNA (NAMRATA) Negative (NEGATIVE) Meds: Medications Generic Name Dose Route Start Last Admin Trade Name Freq PRN Reason Stop Dose Admin Sodium Chloride 10 ml 09/22/21 17:55 09/22/21 18:26 Sodium Chloride 0.9% 10 Ml Syringe FLUSH 10 ml ASDIRECTED PRN Administration Keep Vein Open Discontinued Medications Generic Name Dose Route Start Last Admin Trade Name Freq PRN Reason Stop Dose Admin Sodium Chloride 1,000 mls @ 999 mls/hr 09/22/21 18:05 09/22/21 18:26 Normal Saline IV 09/22/21 19:05 999 mls/hr ONETIME ONE Administration - Re-Assessments/Exams Free Text/Narrative Re-Assessment/Exam: 09/22/21 18:07 Patient presents to the ER for evaluation of his generalized feelings of being unwell. We will go ahead and do a Covid/flu swab and some labs, and give him some fluids. 09/22/21 18:54 Patient has a slight hazy density within both lungs, findings may relate to technique but difficult this point to exclude a mild viral pneumonia such as COVID disease. Mild cardiomegaly was appreciated as well. 09/22/21 19:28 Patient's labs have resulted for the most part, CBC is unremarkable, CMP unremarkable, patient's influenza B and Covid screen are negative, but the influenza A is still pending, likely the patient is positive for influenza A. Nursing staff was able to collect the urinalysis as well for management. 09/22/21 20:08 Urinalysis shows a trace leukocyte esterase with 5-10 white blood cells per high-power field. Urine culture will be sent. Patient was made aware of his testing results, and verbalizes understanding and we will discharge him home with conservative recommendations. Departure - Departure Time of Disposition: 20:09 Disposition: Home, Self-Care 01 Condition: Good Clinical Impression: Influenza A, Viral pneumonia - Discharge Information *PRESCRIPTION DRUG MONITORING PROGRAM REVIEWED*: No *COPY OF PRESCRIPTION DRUG MONITORING REPORT IN PATIENT CODY: No Instructions: Influenza, Adult, [id number] Referrals: Romel Kunz MD [Primary Care Provider] - Forms: ED Department Discharge Additional Instructions: You were evaluated in the ED for for your generalized feelings of being unwell. You did test positive for influenza A. COVID and influenza B screens were negative. Please try to limit your exposure to others until they are 24 hours fever free. Influenza symptoms typically last 7 to 10 days, so hopefully you should be feeling better sooner rather than later. You may take 500 mg Tylenol (acetaminophen) or 600 mg ibuprofen (Advil, Motrin) every 6 hours as needed for ongoing pain management. Do not exceed 4000 mg Tylenol or 3200 mg ibuprofen in a 24-hour time span. Try to increase your oral fluid intake fluids such as Powerade/Gatorade or Pedialyte would be okay during this time, multiple small meals throughout the day would also be sufficient to help you get nutrients and help fight off this viral illness. You can also try to utilize like Ensure protein shakes as well for ongoing management. Please return to the ED if their symptoms should change or worsen. Sepsis Event Note (ED) - Evaluation Sepsis Screening Result: No Definite Risk - Focused Exam Vital Signs: Vital Signs Temp Pulse Resp BP Pulse Ox 09/22/21 17:24 97.8 F 51 L 16 156/74 H 98 - My Orders Last 24 Hours: My Active Orders 09/22/21 17:55 Peripheral IV Care [RC] . DIRECTED Sodium Chloride 0.9% [Saline Flush] 10 ml FLUSH ASDIRECTED PRN Peripheral IV Insertion Adult [OM.PC] Routine 09/22/21 19:59 CULTURE URINE [MREF] Urgent - Assessment/Plan Last 24 Hours: My Active Orders 09/22/21 17:55 Peripheral IV Care [RC] . DIRECTED Sodium Chloride 0.9% [Saline Flush] 10 ml FLUSH ASDIRECTED PRN Peripheral IV Insertion Adult [OM.PC] Routine 09/22/21 19:59 CULTURE URINE [MREF] Urgent
--- NOTE | 2021-09-22 18:42 | CR ---
Chest: Portable view of the chest was obtained. Comparison: Prior chest x-ray of 02/20/17. Heart size is slightly enlarged. Upper mediastinum is normal. Hazy density is seen within the lung which is mostly interstitial. Lungs otherwise are clear. Bony structures show nothing acute. Impression: 1. Slight hazy density within both lungs. Findings may relate to technique but difficult at this point to exclude a mild viral pneumonia such as mild COVID disease. 2. Mild cardiomegaly is noted. Diagnostic code #3
[2021-09-22 19:04] LABS: CORONAVIRUS COVID-19 NAA NEGATIVE (NEGATIVE)
== END 2021-09-22 20:20 | disposition home or self-care (01) ==
LOC: JD.ED 16:48
DX: J10.08 Influenza due to other identified influenza virus with other specified pneumonia (principal); J12.9 Viral pneumonia, unspecified; I10 Essential (primary) hypertension; E66.9 Obesity, unspecified; Z88.2 Allergy status to sulfonamides; Z88.1 Allergy status to other antibiotic agents; Z88.8 Allergy status to other drugs, medicaments and biological substances; Z79.82 Long term (current) use of aspirin; Z72.0 Tobacco use; Z20.822 Contact with and (suspected) exposure to COVID-19; Z68.32 Body mass index [BMI] 32.0-32.9, adult
CPT/HCPCS: 0240U; 36415; 71045; 80053; 81001; 83735; 85025; 86140; 87086; 99284; J7030

== ENCOUNTER 2023-01-16 14:17 | Emergency (ER) | payer MEDICARE, BC ==
[2023-01-16] MEDS ORDERED: Sodium Chloride 0.9% 10 ML Syringe FLUSH PRN (15:07)
[2023-01-16] MEDS ORDERED: Sodium Chloride 0.9% 1,000 ML IV STA (15:08)
[2023-01-16 15:48] LABS: ESTIMATED GFR 88 mL/min (>60)
[2023-01-16] MEDS ORDERED: Iopamidol 612 MG/ML 100 ML Bottle IVPUSH ONE (16:17)
[2023-01-16] MEDS ORDERED: Sodium Chloride 0.9% 10 ML Syringe FLUSH ONE (16:17)
[2023-01-16 17:03] LABS: CORONAVIRUS COVID-19 NAA NEGATIVE (NEGATIVE)
[2023-01-16] MEDS ORDERED: Ondansetron 4 MG/2 ML SDV IVPUSH ONE (17:48)
[2023-01-16 19:14] VITALS: BP 178/83; PULSE 59
== END 2023-01-16 18:09 | disposition home or self-care (01) ==
LOC: JD.ED 14:17
DX: N20.0 Calculus of kidney (principal); J45.909 Unspecified asthma, uncomplicated; I10 Essential (primary) hypertension; Z88.2 Allergy status to sulfonamides; Z88.8 Allergy status to other drugs, medicaments and biological substances; Z88.1 Allergy status to other antibiotic agents; Z79.82 Long term (current) use of aspirin; Z20.822 Contact with and (suspected) exposure to COVID-19
CPT/HCPCS: 0240U; 36415; 74177; 80053; 81001; 84443; 85025; 86140; 96374; 99284; J2405; J3490; Q9967

== ENCOUNTER 2024-11-11 09:40 | Emergency (ER) | payer MEDICARE, BC ==
[2024-11-11 11:47] LABS: APPEARANCE,URINE CLEAR (Clear); BILIRUBIN,URINE NEGATIVE (Negative); COLOR,URINE DARK YELLOW (Yellow); GLUCOSE,URINE NEGATIVE (Negative); KETONES,URINE TRACE (Negative); LEUKOCYTE ESTERASE,URINE NEGATIVE (Negative); NITRITE,URINE NEGATIVE (Negative); OCCULT BLOOD,URINE TRACE-LYSED (Negative); PH,URINE 5.5 (5.0-8.0); PROTEIN,URINE TRACE (Negative); UROBILINOGEN,URINE 0.2 (0.2-1.0)
[2024-11-11 11:55] LABS: BASOPHILS PERCENT AUTO 0.9 % (0.0-1.0); EOSINOPHILS PERCENT AUTO 0.2 % (0.0-6.0); HEMOGLOBIN 14.7 gm/dl (14.0-18.0); IMMATURE GRAN ABSOLUTE AUTO 0.03 K/mm3 (0.00-0.05); IMMATURE GRAN PERCENT AUTO 0.7 % (0.0-0.4); LYMPHOCYTES ABSOLUTE AUTO 0.8 K/mm3 (1.0-4.8); LYMPHOCYTES PERCENT AUTO 18.5 % (24.0-44.0); MEAN CORPUSCULAR HEMOGLOBIN 31.3 pg (28.0-32.0); MEAN CORPUSCULAR VOLUME 89.6 fl (83.0-99.0); MEAN PLATELET VOLUME 9.1 fl (9.4-12.4); MONOCYTES ABSOLUTE AUTO 0.8 K/mm3 (0.0-0.8); MONOCYTES PERCENT AUTO 18.5 % (0.0-8.0); NEUTROPHILS ABSOLUTE AUTO 2.8 K/mm3 (1.8-7.7); NEUTROPHILS PERCENT AUTO 61.2 % (41.0-71.0); PLATELET COUNT,PLT 137 K/mm3 (150-400); RED BLOOD CELL COUNT 4.69 M/mm3 (4.52-5.90); WHITE BLOOD CELL COUNT,WBC 4.54 K/mm3 (3.9-11.3)
[2024-11-11 12:17] LABS: ALBUMIN 3.1 g/dl (3.4-5.0); ANION GAP 14.9 (5-15); BILIRUBIN TOTAL 0.6 mg/dL (0.2-1.0); BUN/CREATININE RATIO 11.3 (14-18); CALCIUM 8.3 mg/dL (8.5-10.1); CREATININE 0.8 mg/dL (0.7-1.3); EST CRCL DRUG DOSING (CG) 77.31 mL/min; POTASSIUM,K 3.9 mEq/L (3.5-5.1); PROTEIN TOTAL,TP 6.2 g/dl (6.4-8.2)
[2024-11-11 12:25] LABS: BACTERIA,URINE FEW /hpf (FEW); EPITHELIAL CELLS,URINE 0-5 /hpf (0-5); MUCUS,URINE MODERATE /hpf (FEW); RBC,URINE 0-5 /hpf (0-5); WBC,URINE 0-5 /hpf (0-5)
[2024-11-11] MEDS: cefTRIAXone 1 GM Vial IVPUSH ONE (12:49)
[2024-11-11] MEDS: Azithromycin 250 MG Tab PO ONE (12:54)
[2024-11-11 12:58] VITALS: PULSE 58
[2024-11-11 13:37] VITALS: BP 118/65
== END 2024-11-11 13:13 | disposition home or self-care (01) ==
LOC: JD.ED 09:40
DX: J18.9 Pneumonia, unspecified organism (principal); I10 Essential (primary) hypertension; J45.909 Unspecified asthma, uncomplicated; E66.9 Obesity, unspecified; M19.90 Unspecified osteoarthritis, unspecified site; F17.210 Nicotine dependence, cigarettes, uncomplicated; Z88.2 Allergy status to sulfonamides; Z88.8 Allergy status to other drugs, medicaments and biological substances; Z79.82 Long term (current) use of aspirin; Z79.899 Other long term (current) drug therapy; Z68.30 Body mass index [BMI] 30.0-30.9, adult
CPT/HCPCS: 36415; 71045; 80053; 81001; 85025; 87428; 93005; 96374; 99285; A9270; J0696; 93010; 99284

== ENCOUNTER 2024-11-13 08:52 | Inpatient (IN) | payer MEDICARE, BC ==
[2024-11-13] MEDS ORDERED: Sodium Chloride 0.9% 10 ML Syringe FLUSH PRN (09:37)
[2024-11-13] MEDS: Ondansetron 4 MG/2 ML SDV IVPUSH ONE (09:58)
[2024-11-13] MEDS: Lactated Ringers 1,000 ML IV SCH ×2 (09:58→18:29)
[2024-11-13 10:10] LABS: BASOPHILS PERCENT AUTO 0.5 % (0.0-1.0); EOSINOPHILS PERCENT AUTO 0.2 % (0.0-6.0); HEMATOCRIT 47.2 % (42.0-52.0); IMMATURE GRAN ABSOLUTE AUTO 0.02 K/mm3 (0.00-0.05); IMMATURE GRAN PERCENT AUTO 0.4 % (0.0-0.4); LYMPHOCYTES ABSOLUTE AUTO 1.3 K/mm3 (1.0-4.8); LYMPHOCYTES PERCENT AUTO 23.1 % (24.0-44.0); MEAN CORPUSCULAR HEMOGLOBIN 30.8 pg (28.0-32.0); MEAN CORPUSCULAR HGB CONC 33.9 g/dl (32.0-36.0); MEAN CORPUSCULAR VOLUME 90.9 fl (83.0-99.0); MEAN PLATELET VOLUME 9.3 fl (9.4-12.4); MONOCYTES ABSOLUTE AUTO 0.7 K/mm3 (0.0-0.8); MONOCYTES PERCENT AUTO 11.8 % (0.0-8.0); NEUTROPHILS ABSOLUTE AUTO 3.6 K/mm3 (1.8-7.7); PLATELET COUNT,PLT 171 K/mm3 (150-400); RED BLOOD CELL COUNT 5.19 M/mm3 (4.52-5.90); WHITE BLOOD CELL COUNT,WBC 5.68 K/mm3 (3.9-11.3)
[2024-11-13 10:39] LABS: A/G RATIO 0.9 (1-2); ANION GAP 15.9 (5-15); BILIRUBIN TOTAL 0.5 mg/dL (0.2-1.0); BUN/CREATININE RATIO 18.8 (14-18); C-REACTIVE PROTEIN 3.51 mg/dL (<0.30); CALCIUM 8.3 mg/dL (8.5-10.1); CREATININE 0.8 mg/dL (0.7-1.3); EST CRCL DRUG DOSING (CG) 74.87 mL/min; MAGNESIUM 1.8 mg/dL (1.8-2.4); POTASSIUM,K 3.9 mEq/L (3.5-5.1); PROTEIN TOTAL,TP 6.5 g/dl (6.4-8.2)
[2024-11-13] MEDS: Albuterol/Ipratropium 3.0-0.5 MG/3 ML Neb Soln NEB ONE (11:38)
[2024-11-13] MEDS: methylPREDNISolone Sodium Succinate 125 MG/2 ML SDV IVPUSH ONE (11:46)
[2024-11-13] MEDS: cefTRIAXone 2 GM Vial IVPUSH ONE (14:34)
[2024-11-13] MEDS ORDERED: LORazepam 2 MG/ML SDV IV PRN (16:05)
[2024-11-13] MEDS ORDERED: Acetaminophen 325 MG Tab PO PRN (16:05)
[2024-11-13] MEDS ORDERED: Melatonin 3 MG Tab PO PRN (16:05)
[2024-11-13] MEDS ORDERED: oxyCODONE 5 MG Tab PO PRN (16:05)
[2024-11-13] MEDS ORDERED: Sennosides/Docusate Sodium 50-8.6 MG Tab PO PRN (16:05)
[2024-11-13] MEDS ORDERED: hydrALAZINE 20 MG/ML SDV IVPUSH PRN (16:10)
[2024-11-13] MEDS ORDERED: Labetalol 100 MG/20 ML MDV IVPUSH PRN (16:10)
[2024-11-13] MEDS: Nicotine 7 MG/24 Hr Patch TRDERM SCH (16:31)
[2024-11-13] MEDS: Albuterol/Ipratropium 3.0-0.5 MG/3 ML Neb Soln NEB PRN (20:30)
[2024-11-14 04:35] LABS: HEMATOCRIT 42.8 % (42.0-52.0); HEMOGLOBIN 14.5 gm/dl (14.0-18.0); IMMATURE GRAN ABSOLUTE AUTO 0.01 K/mm3 (0.00-0.05); IMMATURE GRAN PERCENT AUTO 0.2 % (0.0-0.4); LYMPHOCYTES ABSOLUTE AUTO 0.9 K/mm3 (1.0-4.8); LYMPHOCYTES PERCENT AUTO 22.1 % (24.0-44.0); MEAN CORPUSCULAR HEMOGLOBIN 30.8 pg (28.0-32.0); MEAN CORPUSCULAR HGB CONC 33.9 g/dl (32.0-36.0); MEAN CORPUSCULAR VOLUME 90.9 fl (83.0-99.0); MEAN PLATELET VOLUME 9.4 fl (9.4-12.4); MONOCYTES ABSOLUTE AUTO 0.3 K/mm3 (0.0-0.8); MONOCYTES PERCENT AUTO 5.9 % (0.0-8.0); NEUTROPHILS ABSOLUTE AUTO 3.1 K/mm3 (1.8-7.7); NEUTROPHILS PERCENT AUTO 71.8 % (41.0-71.0); PLATELET COUNT,PLT 141 K/mm3 (150-400); RED BLOOD CELL COUNT 4.71 M/mm3 (4.52-5.90); WHITE BLOOD CELL COUNT,WBC 4.26 K/mm3 (3.9-11.3)
[2024-11-14 04:57] LABS: A/G RATIO 0.8 (1-2); ALBUMIN 2.5 g/dl (3.4-5.0); BILIRUBIN TOTAL 0.2 mg/dL (0.2-1.0); C-REACTIVE PROTEIN 2.01 mg/dL (<0.30); CALCIUM 8.3 mg/dL (8.5-10.1); CREATININE 0.6 mg/dL (0.7-1.3); EST CRCL DRUG DOSING (CG) 99.83 mL/min; MAGNESIUM 1.9 mg/dL (1.8-2.4); PHOSPHORUS 3.4 mg/dL (2.6-4.7); PROTEIN TOTAL,TP 5.7 g/dl (6.4-8.2)
[2024-11-14] MEDS: Aspirin 81 MG Tab.EC PO SCH (08:11)
[2024-11-14] MEDS: amLODIPine 5 MG Tab PO SCH (08:13)
[2024-11-14] MEDS: Enoxaparin 40 MG/0.4 ML Syringe SUBCUT SCH (08:13)
[2024-11-14] MEDS: Magnesium Sulfat/D5W 1GM/100ML 1 GM in Premix Bag 1 BAG IV ONE (12:41)
[2024-11-14] MEDS ORDERED: cefTRIAXone 1 GM Vial IVPUSH SCH (14:00)
[2024-11-14] MEDS: cefTRIAXone 2 GM Vial IVPUSH SCH (15:14)
[2024-11-15] MEDS: Ondansetron 4 MG/2 ML SDV IV PRN (11:32)
[2024-11-15 15:14] VITALS: BP 145/74; PULSE 70
== END 2024-11-15 15:17 | disposition home or self-care (01) | DRG 193 ==
LOC: JD.ED 08:52 → JD.MS 14:22
PROVIDERS: ADMIT Student in an Organized Health Care Education/Training Program; ATTEND Student in an Organized Health Care Education/Training Program
DX: J18.9 Pneumonia, unspecified organism (principal); J96.01 Acute respiratory failure with hypoxia; J40 Bronchitis, not specified as acute or chronic; R11.2 Nausea with vomiting, unspecified; R19.7 Diarrhea, unspecified; J30.9 Allergic rhinitis, unspecified; H54.7 Unspecified visual loss; N40.0 Benign prostatic hyperplasia without lower urinary tract symptoms; M19.90 Unspecified osteoarthritis, unspecified site; I10 Essential (primary) hypertension; F15.90 Other stimulant use, unspecified, uncomplicated; Z66 Do not resuscitate; F17.210 Nicotine dependence, cigarettes, uncomplicated; E66.9 Obesity, unspecified; J45.909 Unspecified asthma, uncomplicated; Z79.82 Long term (current) use of aspirin; Z79.899 Other long term (current) drug therapy; Z88.8 Allergy status to other drugs, medicaments and biological substances; Z86.19 Personal history of other infectious and parasitic diseases; Z87.442 Personal history of urinary calculi; Z85.820 Personal history of malignant melanoma of skin; Z90.89 Acquired absence of other organs; Z98.49 Cataract extraction status, unspecified eye; Z98.890 Other specified postprocedural states; Z90.79 Acquired absence of other genital organ(s); Z88.0 Allergy status to penicillin; Z88.1 Allergy status to other antibiotic agents; Z88.2 Allergy status to sulfonamides; Z88.5 Allergy status to narcotic agent; Z88.6 Allergy status to analgesic agent; Z68.31 Body mass index [BMI] 31.0-31.9, adult
CPT/HCPCS: 36415; 71046; 80053; 83605; 83735; 83880; 84484; 85025; 86140; 93005; 94640; 96361; 96374; 96375; 99285; J2405; J2919; J7120; 84100; 87045; 87046; 87493; 87899; 93010; 94667; 94668; 94761; 97116-GP; 97161-GP; 97530-GP; 99284; A9270-GY; J0696; J1650; J3475; J7620-GY